=== PATIENT | female | born 2000 | race Caucasian/White ===

== ENCOUNTER 2024-04-05 12:22 | Inpatient (IN) ==
--- NOTE | 2024-04-05 12:52 | Emergency Department Note ---
Impression & Plan UTI (urinary tract infection) ADMIT ED Provider Note HPI: History obtained from patient. The patient is a 24-year-old female who presents the emergency department with a chief complaint of right flank pain and dysuria that has been ongoing for the past 4 to 5 days. Patient states at times the pain radiates down her right lower quadrant area. Patient states that she has had similar symptoms in the past that were attributed to kidney stones. On arrival here to the ED the patient is mildly tachycardic but otherwise hemodynamically stable. Patient is afebrile on arrival. ROS: - Per HPI Differential Diagnosis: Urinary tract infection, pyelonephritis, renal abscess, kidney stone, pyelitis, cystitis, ectopic , ovarian cyst, acute appendicitis, amongst other potential pathologies. *Outpatient medications and allergy history reviewed. 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 Lab work shows a leukocytosis of 14.08, hemoglobin is normal, platelet count is normal, CMP does not show any evidence of any critical findings, renal function appears normal. testing is negative, there is no transaminitis, bilirubin is normal. Urinalysis shows 1+ ketones, 2+ blood, 1+ leukocyte esterase with significant pyuria. Will send for culture, CT imaging of the abdomen pelvis was obtained that shows evidence of an obstructing kidney stone at the right UVJ measuring 4 mm in diameter. This does result in mild hydronephrosis. On my reassessment the patient stated that she was still having some discomfort therefore she was added a dose of IV Toradol. I discussed all the above findings with the on-call urology midlevel provider, Darlin Gee NP, and the patient was evaluated at the bedside. Following urology evaluation request was made for medical admission to the hospitalist service and urology will consult, they stated they did not have immediate plans for stent placement unless the patient's status decompensated. Case was then discussed with the on- call hospitalist, Dr. Knutson, and the patient was placed for admission in stable condition. Blood cultures were drawn and the patient was treated in the ER with IV ceftriaxone. Patient was in agreement to this plan and she was placed for admission in stable condition. Consultants/Discussions held with other healthcare providers: -Urology, Dr. Johnson -Hospitalist, Dr. Knutson Disposition discussion held by myself with: -Patient Diagnosis: 1. Infected kidney stone with ureteral obstruction, acute 2. Urinary tract infection, acute 3. Leukocytosis, acute 4. Right-sided abdominal pain/right flank pain, acute 5. Ketonuria, acute Disposition: Admission Haroldo Barboza DO Emergency Medicine Past Med/Surg History Problem List (Updated 04/05/24 @ 17:00 by Haroldo Barboza DO) UTI (urinary tract infection) (Acute) Right distal ureteral calculus Medical History Asthma Surgical History No pertinent past surgical history Social History Smoking Status: Never smoker Preferred Language: Serbian Feels Safe at Home: Yes Allergies Allergies Allergy/AdvReac Type Severity Reaction Status Date / Time No Known Allergies Allergy Verified 07/09/21 23:53 Home Meds Home Medications Medication Instructions Recorded Confirmed Lactobacillus acidophilus 10 10,000 mmu cells PO DAILY 08/24/20 07/09/21 billion cell capsule (Probiotic) fexofenadine 180 mg tablet 180 mg PO DAILY 08/24/20 07/09/21 fluticasone propionate 50 1 spray intranasal DAILY 08/24/20 07/09/21 mcg/actuation nasal spray,suspension lisdexamfetamine 50 mg capsule 50 mg PO QA 08/24/20 07/09/21 (Vyvanse) multivit-iron 18 mg-folic acid 400 1 tab PO QAM 08/24/20 07/09/21 mcg-calcium 500 mg-minerals tablet (Women's One Daily) bupropion HCl 150 mg 24 hr tablet, 150 mg PO DAILY 07/09/21 07/09/21 extended release norgestimate 0.25 mg-ethinyl 1 tab PO DAILY 07/09/21 07/09/21 estradiol 35 mcg tablet (Sylvia) Results & Data (ED) Vital Signs Vital Signs - 24 hr 04/05/24 12:30 04/05/24 14:23 04/05/24 14:34 Temperature 36.6 C Temperature Source Skin Pulse Rate 115 H 115 H Pulse Rate [Radial] 89 Pulse Rhythm Regular Pulse Rhythm [Radial] Regular Respiratory Rate 18 18 18 Respiratory Effort / Characteristics Non-Labored Respiratory Depth Normal Respiratory Pattern Regular Blood Pressure 116/82 Blood Pressure [Right Arm] 121/84 Blood Pressure Mean 93 Blood Pressure Mean [Right Arm] 96 Pulse Oximetry 99 100 100 Oxygen Delivery Method Room Air Room Air Room Air Sepsis Recent Fever Within 48 Hours No Sepsis New/Unexplained Change in Mental Status No Sepsis Action Taken by Nursing No Action Required 04/05/24 16:25 Temperature Temperature Source Pulse Rate Pulse Rate [Radial] 100 H Pulse Rhythm Pulse Rhythm [Radial] Regular Respiratory Rate 18 Respiratory Effort / Characteristics Non-Labored Respiratory Depth Normal Respiratory Pattern Regular Blood Pressure Blood Pressure [Right Arm] 120/86 Blood Pressure Mean Blood Pressure Mean [Right Arm] 97 Pulse Oximetry 99 Oxygen Delivery Method Room Air Sepsis Recent Fever Within 48 Hours Sepsis New/Unexplained Change in Mental Status Sepsis Action Taken by Nursing Laboratory Data 04/05/24 12:33 04/05/24 12:33 Lab Results 04/05/24 04/05/24 Range/Units 12:33 13:44 WBC 14.08 H (4.8-10.8) K/ul RBC 5.29 (4.20-5.40) M/uL Hgb 13.9 (12.0-16.0) g/dl Hct 43.2 (37.0-47.0) % MCV 81.7 (80.0-100.0) fL MCH 26.3 (25.0-34.0) pg MCHC 32.2 (32.0-36.0) g/dL RDW Std Deviation 40.0 (36.4-46.3) fL RDW Coeff of Vanna 13.7 (11.5-14.5) % Plt Count 325 (130-400) K/uL MPV 10.2 (9.4-12.4) fL Immature Gran % (Auto) 0.4 % Neut % (Auto) 67.1 % Lymph % (Auto) 22.2 % [place] % (Auto) 7.2 % Eos % (Auto) 2.7 % Baso % (Auto) 0.4 % Neut # (Auto) 9.44 H (1.40-6.50) K/uL Lymph # (Auto) 3.13 (1.20-3.40) K/uL Union # (Auto) 1.01 H (0.11-0.59) K/uL Eos # (Auto) 0.38 (0.00-0.50) K/uL Baso # (Auto) 0.06 (0.00-0.20) K/uL Immature Gran # (Auto) 0.06 (0.01-0.20) K/uL Sodium 136 (136-145) mmol/L Potassium 4.0 (3.5-5.1) mmol/L Chloride 104 (98-107) mmol/L Carbon Dioxide 23 (21-32) mmol/L Anion Gap 9 (3-11) BUN 13 (6-23) mg/dl Creatinine 1.20 (0.6-1.2) mg/dl Est Cr Clr Drug Dosing Not Reportable eGFR 64.83 BUN/Creatinine Ratio 10.8 (10-20) Glucose 88 (70-99(Fasting)) mg/dl Calcium 9.2 (8.6-10.3) mg/dl Total Bilirubin 0.4 (0.2-1.0) mg/dl AST 15 (13-39) U/L ALT 18 (7-52) U/L Alkaline Phosphatase 68 (34-104) U/L Total Protein 7.5 (6.0-8.3) gm/dl Albumin 4.2 (3.4-5.0) gm/dl Globulin 3.3 (2.5-4.0) gm/dl Albumin/Globulin Ratio 1.3 (0.9-2) Lipase 28 (11-82) U/L HCG, Qual Negative (Negative) Urine Color Yellow Urine Appearance Cloudy A (Clear) Urine pH 6.0 (4.5-7.5) Ur Specific [place] 1.023 (1.000-1.030) Urine Protein 2+ H (Negative) Urine Glucose (UA) Negative (Negative) Urine Ketones 1+ H (Negative) Urine Blood 2+ H (Negative) Urine Nitrite Negative (Negative) Urine Bilirubin Negative (Negative) Urine Urobilinogen Negative (Negative) Ur Leukocyte Esterase 1+ H (Negative) Urine WBC (Auto) 21-50 H (0-5) /hpf Urine RBC (Auto) >20 H (0-2) /hpf U Hyaline Cast (Auto) 3-5 H (0-2) /lpf U Epithel Cells (Auto) 6-10 H (0-2) /hpf Urine Bacteria (Auto) 3+ H (None Seen) Administered Medications Discontinued Medications Sodium Chloride (Nss) 1,000 mls @ 999 mls/hr IV .Q1H1M ONE Stop: 04/05/24 13:50 Last Infusion: 04/05/24 14:09 Dose: Infused Documented By: Admin: 04/05/24 13:08 Dose: 999 mls/hr Documented By: KERWIN Ceftriaxone Sodium (Rocephin) 2,000 mg in 50 mls @ 100 mls/hr IV NOW STA Stop: 04/05/24 14:58 Last Infusion: 04/05/24 16:25 Dose: Infused Documented By: Admin: 04/05/24 15:29 Dose: 100 mls/hr Documented By: KERWIN Ketorolac Tromethamine (Ketorolac Tromethamine 15 Mg/Ml Vial) 15 mg IV NOW ONE Stop: 04/05/24 15:12 Last Admin: 04/05/24 15:29 Dose: 15 mg Documented By: KERWIN Morphine Sulfate (Morphine Sulfate 4 Mg/Ml 1 Ml Carp\Vial) 4 mg IV NOW STA Stop: 04/05/24 12:51 Last Admin: 04/05/24 13:08 Dose: 4 mg Documented By: KERWIN Ondansetron HCl (Ondansetron Inj 2 Mg/Ml 2 Ml Vial) 4 mg IV NOW STA Stop: 04/05/24 12:51 Last Admin: 04/05/24 13:08 Dose: 4 mg Documented By: [facility] Imaging Data Radiologist's Impression: Abdomen/Pelvis CT 04/05/24 12:[address] WITHOUT CONTRAST CT DOSE: 1234.98 mGy.cm HISTORY: Acute right-sided flank pain with hematuria R flank pain TECHNIQUE: Multiaxial CT images of the abdomen and pelvis were performed without contrast. A dose lowering technique was utilized adhering to the principles of ALARA. COMPARISON STUDY: None. FINDINGS: Clear lung bases. No pneumatosis or pneumoperitoneum. The unenhanced spleen, pancreas, adrenal glands, liver and gallbladder are within normal limits. Nonobstructing bilateral renal calculi measuring up to 3 mm on the left and 4 mm on the right. There is mild right-sided hydroureteronephrosis secondary to an obstructing 4 mm calculus within the right ureterovesicular junction on image 322. No left-sided ureteral calculi identified. Decompressed urinary bladder with wall thickening. Unremarkable uterus, aorta and IVC. No lymphadenopathy. No bowel obstruction or bowel wall thickening. Noninflamed appendix. No acute fracture. IMPRESSION: 1. Mild right-sided hydroureteronephrosis secondary to an obstructing 4 mm calculus at the ureterovesicular junction. 2. Nonobstructing bilateral nephrolithiasis. 3. Normal appendix. ACT 112: Negative or not required by law. The above report was generated using voice recognition software. It may contain grammatical, syntax or spelling errors. Electronically signed by: Abiodun Kim M.D. 04/05/2024 2:07 PM Discharge Plan Visit Data Chief Complaint: Kidney Stone Stated Complaint: KIDNEY STONE, SCANS NEED DONE ED Provider: Haroldo Barboza Discharge Problem: UTI (urinary tract infection) Forms Stand Alone Forms: [facility] [place] [employer] Prescriptions Prescriptions: No Action norgestimate-ethinyl estradiol [Sylvia] 0.25-35 mg-mcg tablet 1 tab PO DAILY bupropion HCl 150 mg tablet extended release 24 hr 150 mg PO DAILY fexofenadine [Mavis] 180 mg Tablet 180 mg PO DAILY fluticasone propionate [Flonase] 50 mcg/actuation [place],Suspension 1 spray INTRANASAL DAILY Vyvanse 50 mg capsule 50 mg PO QAM Women's One Daily 18 mg iron-400 mcg-500 mg Ca Tablet 1 tab PO QAM Probiotic 10 billion cell Capsule 10,000 mmu cells PO DAILY Referrals Referrals: PCP,NO [Primary Care Provider] -
[2024-04-05] MEDS: SODIUM CHLORIDE 0.9% 1,000 ML IV ONE (13:08)
[2024-04-05] MEDS: ONDANSETRON INJ 2 MG/ML 2 ML VIAL IV STA (13:08)
[2024-04-05] MEDS: MoRPHine SULFATE 4 MG/ML 1 ML CARP\\VIAL IV STA (13:08)
[2024-04-05 13:23] LABS: Pregnancy Test, Serum Negative (Negative)
[2024-04-05 13:28] LABS: Alanine Aminotransferase 18 U/L (7-52); Albumin Globulin Ratio 1.3 (0.9-2); Albumin Level 4.2 gm/dl (3.4-5.0); Alkaline Phosphatase 68 U/L (34-104); Anion Gap 9 (3-11); Aspartate Aminotransferase 15 U/L (13-39); BUN Creatinine Ratio 10.8 (10-20); Bilirubin,Total 0.4 mg/dl (0.2-1.0); Blood Urea Nitrogen 13 mg/dl (6-23); Calcium 9.2 mg/dl (8.6-10.3); Carbon Dioxide 23 mmol/L (21-32); Chloride 104 mmol/L (98-107); Globulin 3.3 gm/dl (2.5-4.0); Glucose 88 mg/dl (70-99(Fasting)); Lipase 28 U/L (11-82); Sodium 136 mmol/L (136-145); Total Protein 7.5 gm/dl (6.0-8.3)
[2024-04-05 13:31] LABS: Basophils # (auto) 0.06 K/uL (0.00-0.20); Basophils % (auto) 0.4 %; Eosinophils # (auto) 0.38 K/uL (0.00-0.50); Eosinophils % (auto) 2.7 %; Hematocrit (blood only) 43.2 % (37.0-47.0); Hemoglobin 13.9 g/dl (12.0-16.0); Immature Granulocytes # (auto) 0.06 K/uL (0.01-0.20); Immature Granulocytes % (auto) 0.4 %; Lymphocytes # (auto) 3.13 K/uL (1.20-3.40); Lymphocytes % (auto) 22.2 %; Mean Corpuscular Hemoglobin 26.3 pg (25.0-34.0); Mean Corpuscular Hgb Conc 32.2 g/dL (32.0-36.0); Mean Corpuscular Volume 81.7 fL (80.0-100.0); Mean Platelet Volume 10.2 fL (9.4-12.4); Monocytes # (auto) 1.01 K/uL (0.11-0.59); Monocytes % (auto) 7.2 %; Neutrophils # (auto) 9.44 K/uL (1.40-6.50); Neutrophils % (auto) 67.1 %; Platelet Count 325 K/uL (130-400); RDW Coefficient of Variation 13.7 % (11.5-14.5); Red Blood Count 5.29 M/uL (4.20-5.40); White Blood Count 14.08 K/ul (4.8-10.8)
--- NOTE | 2024-04-05 14:08 | CT Scan Report ---
ABDOMEN AND PELVIS CT WITHOUT CONTRAST CT DOSE: 1234.98 mGy.cm HISTORY: Acute right-sided flank pain with hematuria R flank pain TECHNIQUE: Multiaxial CT images of the abdomen and pelvis were performed without contrast. A dose lo wering technique was utilized adhering to the principles of ALARA. COMPARISON STUDY: None. FINDINGS: Clear lung bases. No pneumatosis or pneumoperitoneum. The unenhanced spleen, pancreas, adre nal glands, liver and gallbladder are within normal limits. Nonobstructing bilateral renal calculi me asuring up to 3 mm on the left and 4 mm on the right. There is mild right-sided hydroureteronephrosis secondary to an obstructing 4 mm calculus within the right ureterovesicular junction on image 322. N o left-sided ureteral calculi identified. Decompressed urinary bladder with wall thickening. Unremark able uterus, aorta and IVC. No lymphadenopathy. No bowel obstruction or bowel wall thickening. Noninflamed appendix. No acute fracture. IMPRESSION: 1. Mild right-sided hydroureteronephrosis secondary to an obstructing 4 mm calculus at the ureteroves icular junction. 2. Nonobstructing bilateral nephrolithiasis. 3. Normal appendix. ACT 112: Negative or not required by law. The above report was generated using voice recognition software. It may contain grammatical, syntax o r spelling errors. Electronically signed by: Abiodun Kim M.D. 04/05/2024 2:07 PM
[2024-04-05 14:23] LABS: Appearance Urine Cloudy (Clear); Bacteria Urine Automated 3+ (None Seen); Bilirubin Urine Negative (Negative); Blood Urine 2+ (Negative); Color Urine Yellow; Glucose Urine UA Negative (Negative); Ketones Urine 1+ (Negative); Leukocyte Esterase Urine 1+ (Negative); Nitrite Urine Negative (Negative); Protein Urine 2+ (Negative); RBC Urine Automated >20 /hpf (0-2); Specific Gravity Urine 1.023 (1.000-1.030); Urobilinogen Urine Negative (Negative); WBC Urine Automated 21-50 /hpf (0-5)
[2024-04-05] MEDS: KETOROLAC TROMETHAMINE 15 MG/ML VIAL IV ONE (15:29)
[2024-04-05] MEDS: cefTRIAXone SODIUM 2,000 MG/50 ML BAG IV STA (15:29)
--- NOTE | 2024-04-05 15:34 | Urology Consultation ---
Date of Consultation April 05, 2024 Assessment & Plan (1) Right distal ureteral calculus: 24-year-old female presenting to the emergency department today for evaluation of right flank pain and dysuria. CT abdomen pelvis demonstrated mild hydronephrosis secondary to a 4 mm right UVJ stone. Urinalysis with concern for infection. Patient afebrile, tachycardic, but normotensive, nontoxic appearing Labs reviewedcreatinine 1.2, WBC 14.08, hemoglobin 13.9 Urinalysis showed 2+ blood, 1+ LE, 21-50 WBC, >20 RBC and 3+ bacteria Urine culture pending CT reviewed and discussed - 4 mm R UVJ stone with mild hydronephrosis, additional bilateral renal stones Discussed options for stone management including observation and trial of passage or surgical intervention with right ureteral stent Case reviewed and discussed with Dr. Johnson Recommend admission to hospital medicine for pain control and monitoring If she becomes febrile/septic, will require right ureteral stent placement Continue broad-spectrum antibiotics and narrow per sensitivity data when available Continue supportive care, pain control and medical management per hospital medicine service Make NPO at midnight to reassess for surgical intervention will follow, please contact our service if patient becomes febrile or changes in clinical status History of Present Illness History of Present Illness This is a 24-year-old female who presented to the emergency department today for evaluation of right flank pain and dysuria x 5 days. On arrival to ED, she was afebrile, tachycardic, normotensive. Lab work reviewed and showed a white count of 14.08, hemoglobin 13.9, creatinine 1.2. Urinalysis showed 2+ blood, 1+ LE, 21-50 WBC, >20 RBC, 6-10 epithelials and 3+ bacteria. Urine culture is pending. Workup included CT abdomen pelvis without contrast which showed mild right sided hydroureteronephrosis secondary to an obstructing 4 mm calculus at the UVJ. Additional nonobstructing bilateral nephrolithiasis. ED course: IV fluids, morphine, ketorolac, ondansetron and Rocephin. Patient seen and examined in the emergency department. She is awake and resting in litter. She reports flank pain began 5 days ago and became more persistent 3 days ago. She reports dysuria and discomfort voiding for the past several days. She believes she passed a stone yesterday evening and today because she saw a speck in the toilet. She reports nausea, no vomiting. She reports feeling hot, but her temperature has been normal when measured. No chills. She had a piece of toast around 10 AM. She reports history of sinus infection in January and then developed C. difficile. No prior stone history. She has family history of stones. Allergies Allergy/AdvReac Type Severity Reaction Status Date / Time No Known Allergies Allergy Verified 07/09/21 23:53 Home Medications Medication Instructions Recorded Confirmed Type Lactobacillus acidophilus 10 10,000 mmu cells PO DAILY 08/24/20 07/09/21 History billion cell capsule (Probiotic) fexofenadine 180 mg tablet 180 mg PO DAILY 08/24/20 07/09/21 History fluticasone propionate 50 1 spray intranasal DAILY 08/24/20 07/09/21 History mcg/actuation nasal spray,suspension lisdexamfetamine 50 mg capsule 50 mg PO QAM 08/24/20 07/09/21 History (Vyvanse) multivit-iron 18 mg-folic acid 400 1 tab PO QAM 08/24/20 07/09/21 History mcg-calcium 500 mg-minerals tablet (Women's One Daily) bupropion HCl 150 mg 24 hr tablet, 150 mg PO DAILY 07/09/21 07/09/21 History extended release norgestimate 0.25 mg-ethinyl 1 tab PO DAILY 07/09/21 07/09/21 History estradiol 35 mcg tablet (Sylvia) Patient History Medical History Asthma Surgical History No pertinent past surgical history Social History Smoking Status: Never smoker Preferred Language: Danish Feels Safe at Home: Yes Review of Systems Review of Systems: All systems reviewed & are unremarkable except as noted in HPI & below Physical Exam Constitutional: well developed and well nourished; no acute distress and not ill appearing Respiratory: normal respiratory effort; no respiratory distress and no labored breathing Cardiovascular: Rate/Rhythm: + tachycardic Gastrointestinal (Abdomen): Inspection/Auscultation: abdomen normal to inspection Musculoskeletal: Head/Neck/Chest: normocephalic Neurologic: moves all extremities and awake Psychiatric: Orientation: alert and oriented x 3 Results & Data Vital Signs (Past 12 Hours) Vital Signs Temp Pulse Pulse Resp BP BP Pulse Ox 04/05/24 14:34 115 H 18 100 04/05/24 14:23 89 18 121/84 100 04/05/24 12:30 36.6 C 115 H 18 116/82 99 O2 Del Method 04/05/24 14:34 Room Air 04/05/24 14:23 Room Air 04/05/24 12:30 Room Air PG Care Time/CCT Total # of Minutes Spent Total Time Spent with Patient: Total time spent is greater than 50% in coordination of care (as documented) at patient's floor/unit and/or counseling patient: Coding Level of Care Code 24847 IN/OBS CONSULT LVL 4,60M Diagnoses Right distal ureteral calculus N20.1
[2024-04-05] MEDS ORDERED: KETOROLAC TROMETHAMINE 15 MG/ML VIAL IV PRN (16:27)
--- NOTE | 2024-04-05 16:46 | History & Physical Report ---
Date of Service April 05, 2024 Assessment & Plan (1) Right distal ureteral calculus: Plan: Patient presents to the hospital complaints of right flank pain for [address] scan of the abdomen pelvis showed evidence of obstructing 4 mm ureteral stone urology has been consulted keep n.p.o. after midnight Continue IV normal saline 100 cc/h Pain control with Toradol morphine Empiric IV ceftriaxone Consult urology (2) UTI (urinary tract infection): Plan: Urinalysis showed evidence of UTI Urine cultures pending Continue empiric IV ceftriaxone Admission and Anticipated Discharge Date Admission Date: admit to med surg full code History of Present Illness Chief Complaint: flank pain Primary Care Provider: NO PCP 24-year-old female with no significant past medical history presents to the facility with the following right flank pain about 5 days duration. Emergency department vital signs within normal limits was 14,000 however urinalysis showed evidence of some blood in the urine with a WBC and RBCs and also 3+ bacteria. A CT scan of the abdomen pelvis was done which showed evidence of a right-sided hydro ureteral nephrosis with an obstructing 4 mm stone. Has been consulted and plan will be to admit to the hospital service for now, but there may be need to take her to the OR if things do not improve. Allergies Allergy/AdvReac Type Severity Reaction Status Date / Time No Known Allergies Allergy Verified 07/09/21 23:53 Home Medications Medication Instructions Recorded Confirmed Type Lactobacillus acidophilus 10 10,000 mmu cells PO DAILY 08/24/20 07/09/21 History billion cell capsule (Probiotic) fexofenadine 180 mg tablet 180 mg PO DAILY 08/24/20 07/09/21 History fluticasone propionate 50 1 spray intranasal DAILY 08/24/20 07/09/21 History mcg/actuation nasal spray,suspension lisdexamfetamine 50 mg capsule 50 mg PO QAM 08/24/20 07/09/21 History (Vyvanse) multivit-iron 18 mg-folic acid 400 1 tab PO QAM 08/24/20 07/09/21 History mcg-calcium 500 mg-minerals tablet (Women's One Daily) bupropion HCl 150 mg 24 hr tablet, 150 mg PO DAILY 07/09/21 07/09/21 History extended release norgestimate 0.25 mg-ethinyl 1 tab PO DAILY 07/09/21 07/09/21 History estradiol 35 mcg tablet (Sylvia) Past Med/Surg History Problem List (Updated 04/05/24 @ 16:45 by Mitch Palmer MD) UTI (urinary tract infection) Right distal ureteral calculus Medical History Asthma Surgical History No pertinent past surgical history Social History Smoking Status: Never smoker Preferred Language: Latvian Feels Safe at Home: Yes Review of Systems Review of Systems: All systems reviewed are negative, apart from the ones contained in the history. Physical Exam Physical Exam: The patient is awake, alert and oriented 3, well developed and well nourished, normocephalic and atraumatic, lying in bed and in no acute distress. HEENT--PERRL, EOMI, mucous membranes and oropharynx mildly dry Neck--supple. No JVD. No bruits. Thyroid normal, trachea midline, no adenopathy. Heart--normal S1 and S2. No murmurs, rubs or gallops. Lungs--clear bilaterally, no respiratory distress, no accessory muscle use. Abdomen--normal bowel sounds and soft. Extremities--no cyanosis or clubbing. No edema. Dermatologic--normal skin turgor, normal color, no abnormal lymph nodes, no rash. Neurologic--cranial nerves II through XII grossly intact. Rheumatologic--normal range of motion. Psychiatric--normal affect. Results & Data Results & Data Vital Signs (Past 12 Hours) Vital Signs Temp Pulse Pulse Resp BP BP Pulse Ox 04/05/24 16:25 100 H 18 120/86 99 04/05/24 14:34 115 H 18 100 04/05/24 14:23 89 18 121/84 100 04/05/24 12:30 97.9 F 115 H 18 116/82 99 O2 Del Method 04/05/24 16:25 Room Air 04/05/24 14:34 Room Air 04/05/24 14:23 Room Air 04/05/24 12:30 Room Air PG Care Time/CCT Total # of Minutes Spent Total Time Spent with Patient: Total time spent is greater than 50% in coordination of care (as documented) at patient's floor/unit and/or counseling patient: Coding Level of Care Code 57736 INT INP/OBS CARE MIN Diagnoses Right distal ureteral calculus N20.1 UTI (urinary tract infection) N39.0 Time Spent (min) 75
[2024-04-05] MEDS: Patient's HEIGHT &/or WEIGHT Needed STA (19:06)
[2024-04-05] MEDS: SODIUM CHLORIDE 0.9% 1,000 ML IV SCH (19:09)
[2024-04-05] MEDS ORDERED: MoRPHine SULFATE 2 MG/ML CARP IV PRN (21:03)
[2024-04-05] MEDS: MoRPHine SULFATE 4 MG/ML 1 ML CARP\\VIAL IV PRN (21:38)
[2024-04-05] MEDS: ONDANSETRON INJ 2 MG/ML 2 ML VIAL IV PRN (21:39)
--- OUTSIDE RECORDS SUMMARY | 2024-04-05 22:47 | External Medical Summary | Summary of Care ---
Author Name Unknown Organization [facility] Address [address] [facility] [place] [address] Phone [phone] Care Team Providers Care Weight Control Lecturer Name Role Phone Angelita Child MD Primary Care Provider [phone] Reason for Visit * Reason Comments Acute Upper abdominal pain , currently 6 out of 10. Nausea, extreme pain during BM, noticed blood when wiping after having BM today. Also sinus congestion. Encounter Details Date Type Department Care Team (Late st Contact Info) Description 02/19/2024 1:40 PM EDT Office Visit Family [facility] [address] [place] [address] Katarina Rodriges MD [address] [place] [id number] Acute gastritis without hemorrhage, unspecified gastritis type*; Vaginal yeast infection Allergies No known active allergiesdocumented as of this encounter (statuses as of 02/19/2024) Medications Medication Sig Dispensed Refills Start Date End Date Status fluticasone (FLONASE) 50 MCG/ACT nasal spray Administer 2 Sprays into each nostril daily. 1 Inhaler 5 11/10/2018 Active fexofenadine (SCAR) 180 MG Tablet Take 1 Tab by mouth daily as needed (worsening nasal allergy symptoms). 11/10/2018 Active Albuterol Sulfate HFA 108 (90 Base) MCG/ACT Inhalation Aerosol Solution Inhale 2 Puffs by mouth every 4 hours as needed for Cough, Shortness of Breath or Wheezing (and with respiratory infections). 1 Inhaler 2 11/10/2018 Active BD TB Syringe 27G X 1/2" 1 ML USE 2 PER WEEK FOR ALLERGY INJECTION 01/19/2023 Active Multivitamin Gummies Adult Oral Tablet Chewable Take 1 Tablet by mouth in the morning. Active Ferrous Sulfate 325 (65 Fe) MG Oral Tablet (Feosol) Take 1 Tablet by mouth in the morning and 1 Tablet before bedtime. 02/11/2023 Active Ketoconazole 2 % External Cream Apply to affected area twice daily. 30 g 1 12/28/2023 Active Norgestimate-Eth Estradiol 0.25-35 MG-MCG Oral Tablet (Sprintec 28)Indications:[facility] for control, oral contraceptives Take 1 Tablet by mouth daily. 84 Tablet 4 01/18/2024 Active buPROPion HCl ER (XL) 300 MG Oral Tablet Extended Release 24 Hour (Wellbutrin XL) TAKE 1 TABLET BY MOUTH EVERY DAY IN THE MORNING 12/30/2023 Active Lisdexamfetamine Dimesylate 70 MG Oral Capsule (Vyvanse) TAKE 1 CAPSULE BY MOUTH EVERY DAY IN THE MORNING 12/30/2023 Active EPINEPHrine 0.3 MG/0.3ML Injection Solution Auto-injector (Autoinjector) inject 1 pen intramuscularly as needed for anaphylaxis and if necessary call 911 01/11/2024 Active lamoTRIgine 25 MG Oral Tablet (LaMICtal) 11/22/2023 Active Qelbree 200 MG Oral Capsule Extended Release 24 Hour (Viloxazine HCl ER) Take by mouth. A ctive Amoxicillin-Pot Clavulanate 875-125 MG Oral Tablet (Augmentin)Indicati ons:Acute cough,Acute non-recurrent frontal sinusitis Take 1 Tablet by mouth in the morning and 1 Tablet before bedtime. Do all this for 10 days. 20 Tablet 02/10/2024 Active Promethazine-DM 6.25-15 MG/5ML Oral SyrupIndications:[place] cough,Acute non-recurrent frontal sinusitis Take 5 mL by mouth 4 times a day as needed for Cough. 120 mL 1 02/10/2024 Active Ondansetron HCl 4 MG Oral TabletIndications:N ausea without vomiting Take 1 Tablet by mouth every 6 hours as needed for Nausea. 12 Tablet 02/15/2024 Active Protonix 40 MG Oral Tablet Delayed Release 1 Tablet. 02/18/2024 Active documented as of this encounter (statuses as of 02/19/2024) Active Problems Problem Noted Date Diagnosed Date Intermittent asthma with reliever use up to twic e per week 02/04/2022 Atopic dermatitis 01/24/2020 Asperger's syndrome 12/09/2019 Attention deficit disorder (ADD) without hyperac tivity 05/03/2019 Moderate episode of recurrent major depressive d isorder 05/03/2019 GREG (generalized anxiety disorder) 05/03/2019 Extrinsic asthma without complication 11/10/2018 Allergic rhinitis documented as of this encounter (statuses as of 02/19/2024) Resolved Problems Problem Noted Date Diagnosed Date Resolved Date Anxiety and depression 05/03/201905/03 Allergic conjunctivitis, bilateral 11/10/2018 01/14/2022 documented as of this encounter (statuses as of 02/19/2024) Immunizations Name Administration Dates Next Due COVID-19 mRNA, LNP-s, No Pre serve, 2-Dose Series (Ask The Doctor) 07/28/2020,07/17/2020 Covid-19, Mrna, Lnp-s, Pf, B ivalent, 30 Mcg, IM, 12 yrs and above (Ask The Doctor) 02/10/2022 HPV Vaccine, 4-Valent 12/30/2012,08/28/2012,04/2012 Hepatitis A, Ped/Adol., 18 y ear and below, 2-Dose 03/04/2016,05/11/2008 Hepatitis B, 0-19 yrs 2000,2000,05/2000 Measles & Rubella Vaccine 01/04/2018,06/24/2001 Meningococcal B, OMV AJD, 2- Dose Series (BEXSERO) 01/04/2018,12/02/2017 Meningococcal MCV4P Conjugat e Vaccine (Menactra) 08/05/2016,06/04/2011 Pneumococcal Conjugate Vacci ne, 20-valent ([id number]) 01/28/2022 Pneumococcal Polysaccharide PPV23 (Pneumovax) 12/09/2019 Season Influenza, Quad, PF, Adjuvanted, 65+ Yrs, IM (FLUAD) 02/26/2021 Seasonal Influenza, PF, 6 M & above, IM , (FluLaval or Fluzone) 01/29/2023,01/14/2022,12/27/2019 Seasonal Influenza, Quad, Na june (Flumist) 01/18/2019 Seasonal Influenza, Trivalen t, (IIV3), PF, (Fluzone) 01/27/2024,05/23/2010,05/14/2009,03/15 TD - Tetanus/Diptheria (ADULT) 01/14/2022 TDAP, Age 7 and older, IM (Adacel) 06/04/2011 Varicella Vaccine (Chicken Pox) 03/15/2007,03/04 documented as of this encounter Social History Tobacco Use Types Packs/Day Years Used Date Smoking Tobacco: Never Smokeless Tobacco: Never Comments:no passive smoke ex posures Alcohol Use Standard Drinks/Week Comments Never 0 (1 standard drink = 0.6 oz pur e alcohol) AUDIT-C Answer Date Recorded Frequency of Alcohol Consumption Never 11/10/2018 Average Number of Drinks Not on file 019 Frequency of Binge Drinking Not on file 10/19 PHQ-2 Answer Date Recorded PHQ Adult Total Score 0 04/01/2022 Hunger Vital Sign Answer Date Recorded Within the past 12 months, y ou worried that your food would run out before you got the money to buy more. Never true 01/12/20 22 Within the past 12 months, t he food you bought just didn't last and you didn't have money to get more. Never true 01/11/2022 Utilities Answer Date Recorded Do you have trouble paying y our heating, water, or electric bill? (Adult - for ages 18 years and over) Not on file 10/06/2023 Is your family able to pay t he heat, water, or electric bill? (Household - for ages 0-17 years) Not on file 10/06/2023 Does your family have access to good internet? (Household - for ages 0-17 years) Not on file 10/06/2023 Social Connections Answer Date Recorded How often do you feel lonely or isolated from those around you? (Adult - for ages 18 years and over) Not on file 10/06/2023 Sex and Gender Information Value Date Recorded Sex Assigned at Female 05/03/2019 9:02 AM EST Gender Identity Female 05/03/2019 9:02 AM EST Sexual Orientation Bisexual 05/03/2019 9: 02 AM EST Job Start Date Occupation Industry Not on file Not on file Not on file documented as of this encounter Last Filed Vital Signs Vital Sign Reading Time Taken Comments Blood Pressure 96/72 02/19/2024 1:56 PM EDT Pulse 129 02/19/2024 1:56 PM EDT Temperature 37.5 C (99.5 F) 02/19/2024 1:56 PM ED T Respiratory Rate - - Oxygen Saturation 99% 02/19/2024 1:56 PM EDT Inhaled Oxygen Concentration - - Weight 81 kg (178 lb 9.6 oz) 02/19/2024 1:56 PM EDT Height - - Body Mass Index 31.64 02/10/2024 10:01 AM EDT documented in this encounter Patient Instructions * Patient Instructions* Katarina Rodriges MD - 02/19/2024 6:07 PM EDT Stomach pain likely from irritation by recent illness, amoxicillin and steroids. I think you have a yeast infection that is affecting vagina, perineum and anus. Recommend: -- stop amoxicillin -- continue pantoprazole from ED for 30 days -- get OTC monistat or gynelotrimin, 3-day or 7-day. Buy the one that has the external cream as well as the vaginal applicator. Apply the external cream to labia, perineum an anus 2x/day for 7-10 days. This should help burning, pain and blood on toilet paper. -- avoid things that irritate the stomach - ibuprofen, aspirin, naproxen, coffee, alcohol. documented in this encounter Progress Notes * Katarina Rodriges MD - 02/19/2024 1:58 PM EDT Images from the original note were not included. Subjective Lindsay Delgado is a 23 year old female that presents for Acute (Upper abdominal pain, currently 6 out of 10. Nausea, extreme pain during BM, noticed blood when wiping after having BM today. Also sinus congestion./) History of Present Illness The patient, with a history of sinus infection and nonobstructive kidney stones, presents with a stomach ache that has been ongoing for a few weeks. The pain is located in the upper abdomen, slightlyto the right, and is described as being all over or hard to pinpoint. The patient reports that the pain has been getting progressively worse. The patient was initially diagnosed with a sinus infection and was prescribed amoxicillin, prednisone, and promethazine. However, these medications seem to have exacerbated the patient's symptoms, leading to dizziness, confusion, agitation, and difficulty breathing. The patient has since stopped taking prednisone, promethazine as well as all vitamin supplements but has continue the pantoprazole. She went to the emergency department last night at [facility] and was given pantoprazole, and today is starting to feel better. CT scan showed small bilateral kidney stones but was otherwise unremarkable. Urinalysis was not clearly infected but was sent for urine culture. Labs were otherwise unremarkable. The patient has been experiencing pain during bowel movements and has noticed blood in the stool. Has had labial burning as well. [employer] student, studying [employer] Current medications and allergies reviewed. Past medical history and problem list reviewed. Objective Vitals: 02/19/24 1356 Temp: 37.5 C (99.5 F) Pulse: 129 SpO2: 99% BP: 96/72 Physical Exam HEENT: Oral cavity without specific findings. SKIN: Anal area with long fissure-like lesion at 12:00 position, tender upon palpation. Physical Exam Vitals and nursing note reviewed. Exam conducted with a logging assistant present. Constitutional: General: She is not in acute distress. Appearance: Normal appearance. She is not ill-appearing. HENT: Head: Normocephalic and atraumatic. Right Ear: Tympanic membrane, ear canal and external ear normal. There is no impacted cerumen. Left Ear: Tympanic membrane, ear canal and external ear normal. There is no impacted cerumen. Nose: Nose normal. Mouth/Throat: Mouth: Mucous membranes are moist. Pharynx: Oropharynx is clear. Eyes: General: No scleral icterus. Conjunctiva/sclera: Conjunctivae normal. Pupils: Pupils are equal, round, and reactive to light. Neck: Thyroid: No thyroid mass, thyromegaly or thyroid tenderness. Cardiovascular: Rate and Rhythm: Normal rate and regular rhythm. Heart sounds: No murmur heard. Pulmonary: Effort: Pulmonary effort is normal. Breath sounds: Normal breath sounds. Abdominal: General: Abdomen is flat. There is no distension. Palpations: Abdomen is soft. Tenderness: There is no abdominal tenderness. There is no guarding or rebound. Genitourinary: Comments: General erythema around the anus in the perineum Shallow thin line of cracking indicated by red line above No clearly obvious anal fissure that extends over the sphincter No hemorrhoids Musculoskeletal: Right lower leg: No edema. Left lower leg: No edema. Lymphadenopathy: Cervical: No cervical adenopathy. Skin: General: Skin is warm and dry. Neurological: Mental Status: She is alert. Psychiatric: Mood and Affect: Mood normal. Behavior: Behavior normal. I have reviewed the following results: CMP, Lipid Panel, Hemoglobin A1C, and CBC Assessment and Plan Assessment & Plan Epigastric Pain Ongoing for a few weeks, exacerbated by recent medications (Amoxicillin, Prednisone, Promethazine).CT scan showed non-obstructive kidney stones but no gallstones or abnormalities in pancreas or liver. Likely gastritis secondary to medication use and possible viral infection. -Discontinue Augmentin. -Continue Pantoprazole and consider adding Tums as needed. -Avoid stomach irritants (coffee, alcohol, ibuprofen, naproxen). -If symptoms worsen, contact triage nurse or on-call doctor. Anal Pain/Bleeding Favor yeast infection, causing pain during bowel movements and presence of blood. -Obtain [id number]-[id number] 3-day yeast treatment with suppository and external comfort cream. -Apply comfort cream to affected areas twice daily. -If symptoms do not improve in a week, seek further medical attention. Vaginal Discomfort Likely yeast infection, causing burning sensation at the top of the vagina. -Use the same [id number] 3-day yeast treatment and comfort cream as for anal symptoms. -Apply comfort cream to affected areas twice daily. -If symptoms do not improve in a week, seek further medical attention. Acute gastritis without hemorrhage, unspecified gastritis type (Primary) Vaginal yeast infection Wrap-Up Time: I spent a total of 30-39 minutes (exact time 30 mins) on the date of service in preparation, delivery, and documentation of the care provided to Lindsay Delgado excluding any time spent in the performance of separately billed services. Text in this note was generated using an [employer] documentation service. I discussed the use of a device to record and summarize our discussion today. All persons present during the encounter consented to its use. documented in this encounter Nursing Notes * Milagros Ortiz, Student - 02/19/2024 1:52 PM EDT The patient has been properly identified by confirmation of name and date of . Chief Complaint Patient presents with Acute Upper abdominal pain, currently 6 out of 10. Nausea, extreme pain during BM, noticed blood when wiping after having BM today. Also sinus congestion. One week ago went to urgent care for sinus infection and was prescribed antibiotics, had a bad reaction to something they gave her. [facility] to [facility] that night for med reaction and abd pain. Went to the [facility] ER yesterday for abd pain. Was diagnosed with kidney stones Thursday. documented in this encounter Plan of Treatment Upcoming Encounters Date Type Department Care Team (Late st Contact Info) Description 01/27/2025 8:20 AM EDT Office Visit General Internal Medicine [facility] [address] [place] [address] Angelita Child MD [address] [facility] [address] Health Maintenance Due Date Last Done Comments Depression Monitoring 04/01/2023 04/01/2022 COVID-19 Vaccine ( season) 2023 02/10/2022, 04/07/2021, 07/28/2020, Additional history exists Gonorrhea / Chlamydia Screen 04/15/2024 12/11/2022, 07/04/2021, 06/07/2020, Additional history exists Postponed from 12/12/2023 (Patient Declined After Education) Pap Smear 07/04/2024 07/04/2021 DTap/Tdap Vaccines (3 - Td or Tdap) 01/15/2032 01/14/2022, 06/04/2011 Hepatitis B Vaccine Completed 2000, 2000, 2000 HPV (Gardasil) Vaccine Completed 3, 08/28/2012, 06/18/2012 MENINGOCOCCAL (MENACTRA/MENVEO) Completed 08/05/2016, 06/04/2011 Pneumococcal Vaccine: Pediatrics (0 to 5 Years) and At-Risk Patients (6 to 64 Years) Completed 01/28/2022, 12/09/2019 Influenza Vaccine (FLU shot) Completed 01/27/2024, 01/29/2023, 01/14/2022, Additional history exists documented as of this encounter Medical Devices Not on filedocumented as of this encounter Visit Diagnoses Diagnosis Acute gastritis without hemorrhage, unspecified gastritis type- Primary Vaginal yeast infection Candidiasis of vulva and vagina documented in this encounter Care Teams Weight Control Lecturer Relationship Specialty Start Date End Date Angelita Child MD [address] [place] [address] PCP - General Internal Medicine 05/03/19 documented as of this encounter
--- OUTSIDE RECORDS SUMMARY | 2024-04-05 22:47 | External Medical Summary | Summary of Care ---
Author Name Unknown Organization [facility] Address [address] [place] [address] Phone [phone] Care Team Providers Care Ichthyology Teacher Name Role Phone Angelita Child MD Primary Care Provider [phone] Reason for Referral * Precert (Within 24 hrs (call dept; emergent)) - Authorized Specialty Diagnoses / Procedures Referred By Contac t Referred To Contact Radiology Diagnoses Leukocytosis, unspecified type Periumbilical abdominal pain Nausea without vomiting Procedures CT ABD/PELVIS WO IV/ORAL CONTRAST CT ABD/PELVIS WO IV CONTRAST - W ORAL CONTRAST Elaina Krueger MD [address] [place] [address] Phone: tel: fax: Referral ID Status Reason Start Date Expiration Date V isits Requested Visits Authorized [id number] Authorized Precert 02/15/2024 08/13/2024 [id number] Reason for Visit * Reason Comments Acute Encounter Details Date Type Department Care Team (Late st Contact Info) Description 02/15/2024 2:40 PM EDT Office Visit Family Practice State [facility] Dickson [address] [place] [address] Elaina Krueger MD [address] [place] [address] [address] Viral URI*; Leukocytosis, unspecified type; Periumbilical abdominal pain; Nausea without vomiting Allergies No known active allergiesdocumented as of this encounter (statuses as of 02/29/2024) Medications fluticasone (FLONASE) 50 MCG/ACT nasal spray Administer 2 Sprays into each nostril daily. 1 Inhaler 5 11/11/19 19 Active fexofenadine (SCAR) 180 MG Tablet Take 1 Tab by mouth daily as needed (worsening nasal allergy symptoms). 11/11/19 19 Active Albuterol Sulfate HFA 108 (90 Base) MCG/ACT Inhalation Aerosol Solution Inhale 2 Puffs by mouth every 4 hours as needed for Cough, Shortness of Breath or Wheezing (and with respiratory infections). 1 Inhaler 2 11/11/19 19 Active BD TB Syringe 27G X 1/2" 1 ML USE 2 PER WEEK FOR ALLERGY INJECTION 01/20/20 23 Active Multivitamin Gummies Adult Oral Tablet Chewable Take 1 Tablet by mouth in the morning. Active Ferrous Sulfate 325 (65 Fe) MG Oral Tablet (Feosol) Take 1 Tablet by mouth in the morning and 1 Tablet before bedtime. 02/12/20 23 Active Ketoconazole 2 % External Cream Apply to affected area twice daily. 30 g 1 12/28/19 24 Active Norgestimate-Eth Estradiol 0.25-35 MG-MCG Oral Tablet (Sprintec 28)Indications:Salgado rveillance for control, oral contraceptives Take 1 Tablet by mouth daily. 84 Tablet 4 01/18/20 24 Active buPROPion HCl ER (XL) 300 MG Oral Tablet Extended Release 24 Hour (Wellbutrin XL) TAKE 1 TABLET BY MOUTH EVERY DAY IN THE MORNING 12/30/19 24 Active Lisdexamfetamine Dimesylate 70 MG Oral Capsule (Vyvanse) TAKE 1 CAPSULE BY MOUTH EVERY DAY IN THE MORNING 12/30/19 24 Active EPINEPHrine 0.3 MG/0.3ML Injection Solution Auto-injector (Autoinjector) inject 1 pen intramuscularly as needed for anaphylaxis and if necessary call 911 01/11/20 24 Active lamoTRIgine 25 MG Oral Tablet (LaMICtal) 11/22/19 24 Active Qelbree 200 MG Oral Capsule Extended Release 24 Hour (Viloxazine HCl ER) Take by mouth. Activ e Promethazine-DM 6.25-15 MG/5ML Oral SyrupIndications: Acute cough,Acute non-recurrent frontal sinusitis Take 5 mL by mouth 4 times a day as needed for Cough. 120 mL 1 02/10/20 Active Ondansetron HCl 4 MG Oral TabletIndications :Nausea without vomiting Take 1 Tablet by mouth every 6 hours as needed for Nausea. 12 Tablet 02/15/20 Active Amoxicillin-Pot Clavulanate 875-125 MG Oral Tablet (Augmentin)Indica tions:Acute cough,Acute non-recurrent frontal sinusitis Take 1 Tablet by mouth in the morning and 1 Tablet before bedtime. Do all this for 10 days. 20 Tablet 02/10/20 24 2023 predniSONE 20 MG Oral Tablet (Deltasone)Indica tions:Acute cough,Acute non-recurrent frontal sinusitis Take 2 Tablets by mouth in the morning for 5 days. 10 Tablet 02/10/20 24 2023 documented as of this encounter (statuses as of 02/29/2024) Active Problems Problem Noted Date Diagnosed Date Intermittent asthma with reliever use up to twic e per week 02/04/2022 Atopic dermatitis 01/24/2020 Asperger's syndrome 12/09/2019 Attention deficit disorder (ADD) without hyperac tivity 05/03/2019 Moderate episode of recurrent major depressive d isorder 05/03/2019 GREG (generalized anxiety disorder) 05/03/2019 Extrinsic asthma without complication 11/10/2018 Allergic rhinitis documented as of this encounter (statuses as of 02/29/2024) Resolved Problems Problem Noted Date Diagnosed Date Resolved Date Anxiety and depression 05/03/201905/03 Allergic conjunctivitis, bilateral 11/10/2018 01/14/2022 documented as of this encounter (statuses as of 02/29/2024) Immunizations Name Administration Dates Next Due COVID-19 mRNA, LNP-s, No Pre serve, 2-Dose Series ([employer]) 07/28/2020,07/17/2020 Covid-19, Mrna, Lnp-s, Pf, B ivalent, 30 Mcg, IM, 12 yrs and above ([employer]) 02/10/2022 HPV Vaccine, 4-Valent 12/30/2012,08/28/2012,03/0 04/2012 Hepatitis A, Ped/Adol., 18 y ear and below, 2-Dose 03/04/2016,05/11/2008 Hepatitis B, 0-19 yrs 2000,2000,05/2000 Measles & Rubella Vaccine 01/04/2018,06/24/2001 Meningococcal B, OMV AJD, 2- Dose Series (BEXSERO) 01/04/2018,12/02/2017 Meningococcal MCV4P Conjugat e Vaccine (Menactra) 08/05/2016,06/04/2011 Pneumococcal Conjugate Vacci ne, 20-valent ([id number]) 01/28/2022 Pneumococcal Polysaccharide PPV23 (Pneumovax) 12/09/2019 Season [...] years and over) Not on file 10/06/2023 Comments No Sex and Gender Information Value Date Recorded Sex Assigned at Female 05/03/2019 9:02 AM EST Legal Sex Female 4:26 PM EDT Gender Identity Female 05/03/2019 9:02 AM EST Sexual Orientation Bisexual 05/03/2019 9: 02 AM EST Occupation Industry Job Start Date Job End Date student Not on file Not on file Not on file documented as of this encounter Last Filed Vital Signs Vital Sign Reading Time Taken Comments Blood Pressure 126/84 02/15/2024 2:37 PM EDT Pulse 130 02/15/2024 2:37 PM EDT Temperature 36.8 C (98.2 F) 02/15/2024 2:37 PM ED T Respiratory Rate 18 02/15/2024 2:37 PM EDT Oxygen Saturation 98% 02/15/2024 2:37 PM EDT Inhaled Oxygen Concentration - - Weight 81.2 kg (179 lb 1.9 oz) 02/15/2024 2:37 P M EDT Height - - Body Mass Index 31.73 02/10/2024 10:01 AM EDT documented in this encounter Progress Notes * Elaina Krueger MD - 02/15/2024 2:43 PM EDT Subjective Chief Complaint Patient presents with Acute Lindsay Delgado is a 23 year old female. Patient is unaccompanied. The following issues were addressed today: History of Present Illness The patient, with a history of sinus infections, presents with a prolonged illness that began in mid-January. She initially experienced severe nasal congestion, sneezing, and a runny nose, which she attempted to manage with Afrin. However, she discontinued Afrin after realizing its overuse could be harmful. Following this, she reported worsening symptoms, including facial pain, headaches, and stomach discomfort. She also noted a sensation of being in a "fog" and feeling dissociated from herself. The patient sought care at [facility] urgent care, where she was diagnosed with a sinus infection and prescribed amoxicillin, prednisone, and promethazine. Despite starting these medications, she continued to experience "brain fog," difficulty breathing, and stomach pain. Concerned about potential medication interactions, the patient visited the ER, where she underwent blood work, a urine test, and a chest x-ray. The ER staff instructed her to discontinue prednisone. Following this visit, the patient decided to stop all medications, including amoxicillin and promethazine, as well as her vitamin supplements. She is currently only taking Vyvanse and Wellbutrin. The patient reports persistent stomach pain, which she describes as being located towards the top of the abdomen. She also reports nausea and a recent episode of diarrhea. She has been experiencing postnasal drip and a stuffy nose, and she continues to have difficulty breathing. She also reports feeling unusually warm and has been wearing shorts and a tank top despite the cooler weather. The patient's symptoms have significantly impacted her daily life, including her ability to concentrate during an exam. She expresses frustration with her current state of health and a desire for relief from her symptoms. Review of Systems: See HPI Objective BP 126/84 | Pulse 130 | Temp 36.8 C (98.2 F) (Tympanic) | Resp 18 | Wt 81.2 kg (179 lb 1.9 oz) | LMP 01/19/2024 (Approximate) | SpO2 98% | BMI 31.73 kg/m | BSA 1.9 m Wt Readings from Last 3 Encounters: 02/19/24 81 kg (178 lb 9.6 oz) 02/15/24 81.2 kg (179 lb 1.9 oz) 02/10/24 81.6 kg (180 lb) BP Readings from Last 3 Encounters: 02/19/24 96/72 02/15/24 126/84 02/10/24 116/70 General: Well-appearing, no acute distress Head: Normocephalic and atraumatic Eyes: No conjunctival injection, no scleral icterus, extraocular movements are intact Ears: External ear unremarkable, canals normal and tympanic membranes clear bilaterally Nose: Nasal mucosa pink and moist, nares patent bilaterally Throat/Mouth: Oral mucosa pink and moist, tongue normal in appearance without lesions and with symmetrical movement, pharynx normal in appearance Cardiovascular: Regular rate and rhythm, no murmur Respiratory: Good respiratory effort, breath sounds equal and clear to auscultation bilaterally Abdomen: Soft, non-distended, normoactive bowel sounds, periumbilical tenderness to palpation with guarding, no rebound Psychiatric: Appropriate mood and affect Assessment and Plan 1. Viral URI Persistent symptoms of congestion, postnasal drip, and facial pain. Recommended she resume Augmentin as previously prescribed for sinus infection. 2. Leukocytosis, unspecified type - CT ABD/PELVIS WO IV/ORAL CONTRAST 3. Periumbilical abdominal pain - CT ABD/PELVIS WO IV/ORAL CONTRAST 4. Nausea without vomiting - CT ABD/PELVIS WO IV/ORAL CONTRAST - Ondansetron HCl 4 MG Oral Tablet; Take 1 Tablet by mouth every 6 hours as needed for Nausea. Dispense: 12 Tablet; Refill: 0 Significant pain on examination today. Patient reports abdominal pain and nausea since last . Recent labs reviewed and WBC elevated. Will order STAT CT abdomen/pelvis. Zofran Rx for nausea sent to pharmacy. Discussed may be symptom of viral illness but will rule out acute pathology given her findings here today. Return if symptoms worsen or fail to improve. This note was electronically signed by Elaina Krueger MD Text in this note was generated using an ambient documentation service. I discussed the use of a device to record and summarize our discussion today. All persons present during the encounter consented to its use. documented in this encounter Nursing Notes * Batool Zeng LPN - 02/15/2024 2:32 PM EDT Patient presents in office today with C/O not feeling well was seen in the ER and given Augmentin prednisone and promethazine. Is not any better. Is very sick to stomach headache, extreme fatigue, SOB brain very foggy having difficulty focusing and processing everything Covid, flu negative at hospital documented in this encounter Plan of Treatment Upcoming Encounters Date Type Department Care Team (Late st Contact Info) Description 03/08/2024 2:30 PM EST Office Visit Gastroenterology, [facility] [address] [place] [place] [address] Mary Kay Willams CRNP [address] [place] [id number] 01/27/2025 8:20 AM EDT Office Visit General Internal Medicine [facility] [address] [facility] [place] [address] Angelita Child MD [address] [facility] [place] [address] Health Maintenance Due Date Last Done Comments [...] Not on filedocumented as of this encounter Procedures Procedure Name Priority Date/Time Associated Diagnosis Comments CT ABD/PELVIS WO IV/ORAL CONTRAST STAT 02/15/2024 4:47 PM EDT Leukocytosis, unspecified type Periumbilical abdominal pain Nausea without vomiting documented in this encounter Results * CT ABD/PELVIS WO IV/ORAL CONTRAST (02/15/2024 4:47 PM EDT) Anatomical Region Laterality Modality Body, Abdomen, Pelvis Computed T omography 02/15/2024 5:43 PM EDT Impressions 02/15/2024 5:49 PM EDT IMPRESSION 1. No acute pathology in the abdomen or pelvis. 2. Bilateral nonobstructive nephrolithiasis without hydronephrosis. I have personally reviewed this examination and agree with the resident/fellow physician's interpretation. Narrative 02/15/2024 5:49 PM EDT EXAM EXAM: CT ABD/PELVIS WO IV/ORAL CONTRAST DATE and TIME: 02/15/2024 4:47 pm HISTORY CLINICAL INFORMATION: Periumbilical abd pain, nausea, leukocytosis TECHNIQUE Oral Contrast: Not administered. Axial CT images were acquired without intravenous contrast. Sagittal and coronal reformats were generated. COMPARISON None. FINDINGS LOWER CHEST: Within normal limits. ABDOMEN/PELVIS: Evaluation of the solid and hollow viscera is limited due to the lack of oral and IV contrast administration. LIVER: Within normal limits. BILE DUCTS: Nondilated. GALLBLADDER: No calcified stones. PANCREAS: Within normal limits. SPLEEN: Within normal limits. ADRENALS: Within normal limits. KIDNEYS/URETERS: Small bilateral nonobstructive calculi. No hydronephrosis. BLADDER: Collapsed. BOWEL: No bowel obstruction. Normal retrocecal appendix. LYMPH NODES: No pathologically enlarged lymph nodes. VESSELS: Within normal limits. REPRODUCTIVE ORGANS: Within normal limits. PERITONEUM/RETROPERITONEUM: No ascites, fluid collections, or free air. ABDOMINAL WALL/SOFT TISSUES: Within normal limits. BONES: Within normal limits. Procedure Note Arun Whittington MD - 02/15/2024 EXAM EXAM: CT ABD/PELVIS WO IV/ORAL CONTRAST DATE and TIME: 02/15/2024 4:47 pm HISTORY CLINICAL INFORMATION: Periumbilical abd pain, nausea, leukocytosis TECHNIQUE Oral Contrast: Not administered. Axial CT images were acquired without intravenous contrast. Sagittal andcoronal reformats were generated. COMPARISON None. FINDINGS LOWER CHEST: Within normal limits. ABDOMEN/PELVIS: Evaluation of the solid and hollow viscera is limited due to the lack oforal and IV contrast administration. LIVER: Within normal limits. BILE DUCTS: Nondilated. GALLBLADDER: No calcified stones. PANCREAS: Within normal limits. SPLEEN: Within normal limits. ADRENALS: Within normal limits. KIDNEYS/URETERS: Small bilateral nonobstructive calculi. Nohydronephrosis. BLADDER: Collapsed. BOWEL: No bowel obstruction. Normal retrocecal appendix. LYMPH NODES: No pathologically enlarged lymph nodes. VESSELS: Within normal limits. REPRODUCTIVE ORGANS: Within normal limits. PERITONEUM/RETROPERITONEUM: No ascites, fluid collections, or free air. ABDOMINAL WALL/SOFT TISSUES: Within normal limits. BONES: Within normal limits. IMPRESSION IMPRESSION 1. No acute pathology in the abdomen or pelvis. 2. Bilateral nonobstructive nephrolithiasis without hydronephrosis. I have personally reviewed this examination and agree with the resident/fellow physician's interpretation. us Elaina Krueger MD RAD CT Final Result documented in this encounter Visit Diagnoses Diagnosis Viral URI- Primary Acute upper respiratory infections of unspecified site Leukocytosis, unspecified type Periumbilical abdominal pain Abdominal pain, periumbilic Nausea without vomiting documented in this encounter Care Teams Ichthyology Teacher Relationship Specialty Start Date End Date Angelita Child MD [address] [place] [address] [place] [address] PCP - General Internal Medicine 05/03/19 documented as of this encounter
--- OUTSIDE RECORDS SUMMARY | 2024-04-05 22:47 | External Medical Summary | Summary of Care ---
Author Name Unknown Organization [facility] Address [address] [place] [address] Phone [phone] Care Team Providers Care Sander Machine Name Role Phone Angelita Child MD Primary Care Provider [phone] Encounter Details Date Type Department Care Team (Late st Contact Info) Description 04/04/2024 Orders Only Outcomes Research Department [address], [place] [id number] Macrina Hollis CHRA [employer] [facility] Other*[id number] Allergies No known active allergiesdocumented as of this encounter (statuses as of 04/04/2024) Medications fluticasone (FLONASE) 50 MCG/ACT nasal spray [...] needed for Cough. 120 mL 1 02/10/20 24 Active Ondansetron HCl 4 MG Oral TabletIndications :Nausea without vomiting Take 1 Tablet by mouth every 6 hours as needed for Nausea. 12 Tablet 02/15/20 24 Active Protonix 40 MG Oral Tablet Delayed Release 1 Tablet. 02/18/20 24 Active documented as of this encounter (statuses as of 04/04/2024) Active Problems Problem Noted Date Diagnosed Date Intermittent asthma with reliever use up to twic e per week 02/04/2022 Atopic dermatitis 01/24/2020 Asperger's syndrome 12/09/2019 Attention deficit disorder (ADD) without hyperac tivity 05/03/2019 Moderate episode of recurrent major depressive d isorder 05/03/2019 GREG (generalized anxiety disorder) 05/03/2019 Extrinsic asthma without complication 11/10/2018 Allergic rhinitis documented as of this encounter (statuses as of 04/04/2024) Resolved Problems Problem Noted Date Diagnosed Date Resolved Date Anxiety and depression 05/03/201905/03 Allergic conjunctivitis, bilateral 11/10/2018 01/14/2022 documented as of this encounter (statuses as of 04/04/2024) Immunizations Name Administration Dates Next Due COVID-19 mRNA, LNP-s, No Pre serve, 2-Dose Series ([employer]) 07/28/2020,07/17/2020 Covid-19, Mrna, Lnp-s, Pf, B ivalent, 30 Mcg, IM, 12 yrs and above ([employer]) 02/10/2022 HPV Vaccine, 4-Valent 12/30/2012,08/28/2012,04/2012 Hepatitis A, Ped/Adol., 18 y ear and below, 2-Dose 03/04/2016,05/11/2008 Hepatitis B, 0-19 yrs 2000,2000,05/2000 Measles & Rubella Vaccine 01/04/2018,06/24/2001 Meningococcal B, OMV AJD, 2- Dose Series (BEXSERO) 01/04/2018,12/02/2017 Meningococcal MCV4P Conjugat e Vaccine (Menactra) 08/05/2016,06/04/2011 Pneumococcal Conjugate Vacci ne, 20-valent ([id number]) 01/28/2022 Pneumococcal Polysaccharide PPV23 (Pneumovax) 12/09/2019 Season [...] on file documented as of this encounter Plan of Treatment Upcoming Encounters Date Type Department Care Team (Late st Contact Info) Description 01/27/2025 8:20 AM EDT Office Visit General Internal Medicine [facility] Dickson [address] [place] [address] Angelita Child MD [address] [place] [address] Scheduled Orders Name Type Priority Associated Diagnoses Orde r Schedule MYCODE SUBSEQUENT ADULT Lab Routine [employer] Other*[id number] Every 6 Months for 2 Occurrences starting 04/04/2024 until 04/24/2025 Health Maintenance Due Date Last Done Comments [...] as of this encounter Visit Diagnoses Diagnosis [facility] Other*[id number] documented in this encounter Care Teams Sander Machine Relationship Specialty Start Date End Date Angelita Child MD [address] [place] [address] PCP - General Internal Medicine 05/03/19 documented as of this encounter
--- OUTSIDE RECORDS SUMMARY | 2024-04-05 22:47 | External Medical Summary ---
Author Name Unknown Address Unknown Organization [facility] [address] [place] [address] Laboratory Report Ordering Provider Test Date Status NIKKO NINO 04/05/2024 11:31:00 Final Observation Date Value Abnormality Reference (Units ) Status Color of Urine by Auto 04/05/2024 11:31:00 Yellow Light Yellow, Yellow Final Clarity, Urine 04/05/2024 11:31:00 Cloudy Abnormal Clear Final Glucose [Mass/volume] in Urine by Automated test strip 04/05/2024 11:31:00 Negative Negative (mg/dL) Final Bilirubin.total [Presence] in Urine by Automated test strip 04/05/2024 11:31:00 Negative Negative Final Ketones [Mass/volume] in Urine by Automated test strip 04/05/2024 11:31:00 15 Abnormal Negative (mg/dL) Final Specific gravity, Urine 04/05/2024 11:31:00 1.020 1.003-1.030 Final Hemoglobin [Presence] in Urine by Automated test strip 04/05/2024 11:31:00 Moderate Abnormal Negative Final pH, Urine 04/05/2024 11:31:00 6.0 5.0, 5.5, 6.0, 6.5, 7.0, 7.5 (units) Final Protein [Mass/volume] in Urine by Automated test strip 04/05/2024 11:31:00 100 Abnormal Negative (mg/dL) Final Urobilinogen, Urine 04/05/2024 11:31:00 0.2 0.2, 1.0 (mg/dL) Final Nitrite [Presence] in Urine by Automated test strip 04/05/2024 11:31:00 Negative Negative Final Leukocyte esterase [Presence] in Urine by Automated test strip 04/05/2024 11:31:00 Trace Abnormal Negative Final Performing Location [facility] [address] [place] [address]
[2024-04-06 04:29] LABS: Hematocrit (blood only) 39.1 % (37.0-47.0); Hemoglobin 12.3 g/dl (12.0-16.0); Mean Corpuscular Hemoglobin 26.5 pg (25.0-34.0); Mean Corpuscular Hgb Conc 31.5 g/dL (32.0-36.0); Mean Corpuscular Volume 84.1 fL (80.0-100.0); Mean Platelet Volume 9.8 fL (9.4-12.4); Platelet Count 298 K/uL (130-400); RDW Coefficient of Variation 13.7 % (11.5-14.5); RDW Standard Deviation 42.2 fL (36.4-46.3); Red Blood Count 4.65 M/uL (4.20-5.40); White Blood Count 10.11 K/ul (4.8-10.8)
[2024-04-06 04:47] LABS: Calcium 8.2 mg/dl (8.6-10.3); Creatinine Clr Calc Pharmacy 81.6 ml/min; Potassium 4.3 mmol/L (3.5-5.1)
--- NOTE | 2024-04-06 08:31 | Urology Progress Note ---
Date of Service April 06, 2024 Assessment & Plan (1) Right distal ureteral calculus: (2) UTI (urinary tract infection): Plan: Follow-up of the right UVJ stone Patient afebrile overnight, intermittent tachycardia Labs today reviewedcreatinine 1.08, WBC 10.11, hemoglobin 12.3 Urine and blood cultures are pending Continue with broad-spectrum antibiotics and narrow per sensitivity data when available She continues to have right flank discomfort and nausea Reviewed options for management including trial of passage versus surgical intervention today or outpatient if her pain is controlled After reassessment, she would like to proceed with intervention today Proceed to OR for cystoscopy, right ureteral stent placement and possible stone extraction depending on findings Risks and benefits of procedure to be reviewed with patient by Dr. Cm Keep n.p.o. for procedure Continue to strain all urine Notify urology if patient passes her stone, send for stone analysis Continue supportive care, pain management and antibiotics per hospital medicine service Attending note: Patient independently assessed, examined, interviewed, and evaluated. Agree with note as above. Patient's vitals and labs were all reviewed. Pertinent values in the HPI and plan section. Imaging was reviewed interpreted by myself. Agree with read. Vitals were reviewed. Discussed findings extensively with patient and family. Reviewed with nurse practitioner as well as consulting physicians/team. Patient's complicated medical and surgical history was reviewed and summarized above. Patient's surgical, medical, social, and family history were all reviewed with pertinent values as above. Discussed patient's current diagnosis as well as concerns and issues. Reviewed different options moving forward. Discussed potential risks and benefits as well as possible options and concerns. Reviewed potential surgical options and interventions. Discussed potential issues and concerns related to intervention. Risk and benefits were discussed extensively with patient and any available family. Discussed potential risks related to anesthesia. Discussed risks of bleeding infection and injury. Risks and benefits discussed at length for procedure. These include bleeding, infection, injury to surrounding tissues or organs, and risks associated with anesthesia. Patient states understanding and agrees to proceed. Will sign consent and schedu le. Plan for cystoscopy with right ureteroscopy and possible stone treatment. Admission and Anticipated Discharge Date Admission Date: April 05, 2024 Subjective Patient seen and examined at bedside this morning. She continues to have right flank discomfort and intermittent nausea. She is voiding spontaneously. Denies known stone passage. Continues to have dysuria. No fever or chills overnight. Review of Systems Constitutional: as per Subjective / HPI Genitourinary: as per Subjective / HPI Physical Exam Constitutional: well developed and well nourished; no acute distress Respiratory: normal respiratory effort; no respiratory distress and no labored breathing Gastrointestinal (Abdomen): Inspection/Auscultation: abdomen normal to inspection Musculoskeletal: Head/Neck/Chest: normocephalic Neurologic: moves all extremities and awake Psychiatric: Orientation: alert and oriented x 3 Results & Data Vital Signs (Past 12 Hours) Vital Signs Temp Pulse Pulse Resp BP Pulse Ox O2 Del Method 04/06/24 07:55 36.7 C 91 H 18 150/78 H 95 Room Air 04/05/24 21:15 36.5 C 117 H 16 137/93 98 Room Air PG Care Time/CCT Total # of Minutes Spent Total Time Spent with Patient: Total time spent is greater than 50% in coordination of care (as documented) at patient's floor/unit and/or counseling patient: Coding Level of Care Code 59113 SUB INP/OBS CARE 25MIN Diagnoses Right distal ureteral calculus N20.1 UTI (urinary tract infection) N39.0
--- OUTSIDE RECORDS SUMMARY | 2024-04-06 09:35 | External Medical Summary | Summary of Care ---
Author Name Unknown Organization [facility] Address [address] [facility] [place] [address] Phone [phone] Care Team Providers Care Wad Impregnator Name Role Phone Angelita Child MD Primary Care Provider [phone] Reason for Visit * Reason Comments Acute RLQ pain, painful ur ination, urinary frequency started . Reports Kidney stones were found on imaging in January. Encounter Details Date Type Department Care Team (Late st Contact Info) Description 04/05/2024 11:20 AM EST Office Visit Family Practice [facility] [address] [place] [address] Nguyễn Murry MD [address] [place] [address] RLQ abdominal pain*; Dysuria; Nausea Allergies No known active allergiesdocumented as of this encounter (statuses as of 04/05/2024) Medications fluticasone (FLONASE) 50 MCG/ACT nasal spray Administer 2 Sprays into each nostril daily. 1 Inhaler 5 019 Active fexofenadine (SCAR) 180 MG Tablet Take 1 Tab by mouth daily as needed (worsening nasal allergy symptoms). Active Albuterol Sulfate HFA 108 (90 Base) MCG/ACT Inhalation Aerosol Solution Inhale 2 Puffs by mouth every 4 hours as needed for Cough, Shortness of Breath or Wheezing (and with respiratory infections). 1 Inhaler 2 019 Active BD TB Syringe 27G X 1/2" 1 ML USE 2 PER WEEK FOR ALLERGY INJECTION Active Multivitamin Gummies Adult Oral Tablet Chewable Take 1 Tablet by mouth in the morning. Active Ferrous Sulfate 325 (65 Fe) MG Oral Tablet (Feosol) Take 1 Tablet by mouth in the morning and 1 Tablet before bedtime. Active Norgestimate-Eth Estradiol 0.25-35 MG-MCG Oral Tablet (Sprintec 28)Indications:S urveillance for control, oral contraceptives Take 1 Tablet by mouth daily. 84 Tablet 4 Active buPROPion HCl ER (XL) 300 MG Oral Tablet Extended Release 24 Hour (Wellbutrin XL) TAKE 1 TABLET BY MOUTH EVERY DAY IN THE MORNING Active EPINEPHrine 0.3 MG/0.3ML Injection Solution Auto-injector (Autoinjector) inject 1 pen intramuscularly as needed for anaphylaxis and if necessary call 911 Active Qelbree 200 MG Oral Capsule Extended Release 24 Hour (Viloxazine HCl ER) Take by mouth. Activ e Ketoconazole 2 % External Cream Apply to affected area twice daily. 30 g 1 024 2023 Discontinued Lisdexamfetamine Dimesylate 70 MG Oral Capsule (Vyvanse) TAKE 1 CAPSULE BY MOUTH EVERY DAY IN THE MORNING 024 2023 Discontinued lamoTRIgine 25 MG Oral Tablet (LaMICtal) 024 2023 Discontinued Promethazine-DM 6.25-15 MG/5ML Oral SyrupIndications :Acute cough,Acute non-recurrent frontal sinusitis Take 5 mL by mouth 4 times a day as needed for Cough. 120 mL 1 024 2023 Discontinued Ondansetron HCl 4 MG Oral TabletIndication s:Nausea without vomiting Take 1 Tablet by mouth every 6 hours as needed for Nausea. 12 Tablet 024 2023 Discontinued Protonix 40 MG Oral Tablet Delayed Release 1 Tablet. 024 2023 Discontinued documented as of this encounter (statuses as of 04/05/2024) Active Problems Problem Noted Date Diagnosed Date Intermittent asthma with reliever use up to twic e per week 02/04/2022 Atopic dermatitis 01/24/2020 Asperger's syndrome 12/09/2019 Attention deficit disorder (ADD) without hyperac tivity 05/03/2019 Moderate episode of recurrent major depressive d isorder 05/03/2019 GREG (generalized anxiety disorder) 05/03/2019 Extrinsic asthma without complication 11/10/2018 Allergic rhinitis documented as of this encounter (statuses as of 04/05/2024) Resolved Problems Problem Noted Date Diagnosed Date Resolved Date Anxiety and depression 05/03/201905/03 Allergic conjunctivitis, bilateral 11/10/2018 01/14/2022 documented as of this encounter (statuses as of 04/05/2024) Immunizations Name Administration Dates Next Due COVID-19 mRNA, LNP-s, No Pre serve, 2-Dose Series ([employer]) 07/28/2020,07/17/2020 Covid-19, Mrna, Lnp-s, Pf, B ivalent, 30 Mcg, IM, 12 yrs and above ([employer]) 02/10/2022 HPV Vaccine, 4-Valent 12/30/2012,08/28/2012,04/2012 Hepatitis A, Ped/Adol., 18 y ear and below, 2-Dose 03/04/2016,05/11/2008 Hepatitis B, 0-19 yrs 2000,2000,05/2000 Measles & Rubella Vaccine 01/04/2018,06/24/2001 Meningococcal B, OMV AJD, 2- Dose Series (BEXSERO) 01/04/2018,12/02/2017 Meningococcal MCV4P Conjugat e Vaccine (Menactra) 08/05/2016,06/04/2011 Pneumococcal Conjugate Vacci ne, 20-valent ([id number]) 01/28/2022 Pneumococcal Polysaccharide PPV23 (Pneumovax) 12/09/2019 Season [...] Date Smoking Tobacco: Never Smokeless Tobacco: Never Tobacco Cessation:Counseling Given: Not Answered Comments:no passive smoke exposures Alcohol Use Standard Drinks/Week Comments Never 0 [...] money to get more. Never true 01/11/2022 Comments No Sex and Gender Information Value [...] Sign Reading Time Taken Comments Blood Pressure 104/62 04/05/2024 11:18 AM EST Pulse 118 04/05/2024 11:18 AM EST Temperature 36.6 C (97.9 F) 04/05/2024 11:[address] Respiratory Rate 16 04/05/2024 11:18 AM EST Oxygen Saturation 97% 04/05/2024 11:18 AM EST Inhaled Oxygen Concentration - - Weight - - Height - - Body Mass Index - - documented in this encounter Progress Notes * Elina Bloom LPN - 04/05/2024 12:14 PM EST Called [facility]. Verbal report given to Yue. * Nguyễn Murry MD - 04/05/2024 11:55 AM EST Images from the original note were not included. SUBJECTIVE: Lindsay Delgado is a 24 year old female here for Acute (RLQ pain, painful urination, urinary frequency started . Reports Kidney stones were found on imaging in January. ) . Right-sided mid abdominal pain started about 5 days ago. Has progressed to right lower abdominal pain and right groin pain. Became severe burning over the last 3 days. Also new nausea severe of the last 3 days no vomiting. She complains of dysuria and urinary frequency in the last 3 days. She thinks she may have passed a stone but without any relief. No gross hematuria. She she states she has had subjective fever but temperature normal at home. No chills. No chest pain. Sometimes painful take a deep breath in. Stools have been soft. She is known to have multiple renal stones on CT abdomen pelvis from this fall. Of note she was treated with oral vancomycin for significant C diff infection. She was hospitalizedfrom February 28 to March [facility] at [facility]. Since then her stools have slowly improved and she does not have any diarrhea currently. Hospital records were reviewed on [employer] anywhere. She had a negative test for stool culture, fecal calprotectin was normal. Tested negative for Giardia and Cryptosporidium. ROS: Negative except above. Past Medical History: Diagnosis Date Allergic conjunctivitis Allergic rhinitis Anxiety and depression Attention deficit disorder (ADD) without hyperactivity 05/03/2019 Autism spectrum Intermittent asthma with reliever use up to twice per week 02/04/2022 Past Surgical History: Procedure Laterality Date DENTAL SURGERY PROCEDURE NEC REMOVE TONSILS & ADENOIDS, UNDER 12 Social History Socioeconomic History Marital status: Single Spouse name: Not on file Number of children: Not on file Years of education: Not on file Highest education level: Not on file Occupational History Occupation: student Tobacco Use Smoking status: Never Smokeless tobacco: Never Tobacco comments: no passive smoke exposures Vaping Use Vaping status: Never Used Substance and Sexual Activity Alcohol use: Never Drug use: Never Sexual activity: Yes Partners: Male control/protection: Condom, Pill Other Topics Concern Not on file Social History Narrative Not on file Social Needs Financial Resource Strain: Not on file Food Insecurity: No Food Insecurity (01/11/2022) Hunger Vital Sign Worried About Running Out of Food in the Last Year: Never true Ran Out of Food in the Last Year: Never true Transportation Needs: Not on file Social Connections: Unknown (10/06/2023) Social Connections How often do you feel lonely or isolated from those around you? (Adult - for ages 18 years and over): Not on file Housing Stability: Not on file Family History Problem Relation Name Age of Onset No Known Problems Mother Eczema Father Current Outpatient Medications Medication Sig Dispense Refill fluticasone (FLONASE) 50 MCG/ACT nasal spray Administer 2 Sprays into each nostril daily. 1 Inhaler5 fexofenadine (SCAR) 180 MG Tablet Take 1 Tab by mouth daily as needed (worsening nasal allergy symptoms). Albuterol Sulfate HFA 108 (90 Base) MCG/ACT Inhalation Aerosol Solution Inhale 2 Puffs by mouth every 4 hours as needed for Cough, Shortness of Breath or Wheezing (and with respiratory infections). 1Inhaler 2 Multivitamin Gummies Adult Oral Tablet Chewable Take 1 Tablet by mouth in the morning. Ferrous Sulfate 325 (65 Fe) MG Oral Tablet (Feosol) Take 1 Tablet by mouth in the morning and 1 Tablet before bedtime. Norgestimate-Eth Estradiol 0.25-35 MG-MCG Oral Tablet (Sprintec 28) Take 1 Tablet by mouth daily. 84 Tablet 4 buPROPion HCl ER (XL) 300 MG Oral Tablet Extended Release 24 Hour (Wellbutrin XL) TAKE 1 TABLET BY MOUTH EVERY DAY IN THE MORNING EPINEPHrine 0.3 MG/0.3ML Injection Solution Auto-injector (Autoinjector) inject 1 pen intramuscularly as needed for anaphylaxis and if necessary call 911 Qelbree 200 MG Oral Capsule Extended Release 24 Hour (Viloxazine HCl ER) Take by mouth. BD TB Syringe 27G X 1/2" 1 ML USE 2 PER WEEK FOR ALLERGY INJECTION No current facility-administered medications for this visit. Reading Physician Reading Date Result Priority Arun Whittington MD [phone] 02/15/2024 Venus Salazar MD [phone] 02/15/2024 Narrative & Impression EXAM EXAM: CT ABD/PELVIS WO IV/ORAL CONTRAST [...] pelvis. 2. Bilateral nonobstructive nephrolithiasis without hydronephrosis. Physical: BP 104/62 | Pulse 118 | Temp 97.9 F (36.6 C) (Tympanic) | Resp 16 | SpO2 97% General-in distress, uncomfortable, unable to walk upright due to abd pain. Head, Eyes, Ears, Nose, Throat--Normocephalic, atraumatic Neck-Supple Lymph-no lymphadenopathy Lungs-Clear to Auscultation bilaterally Cardiovascular--tachycardic rate & regular Rhythm, +s1, s2, no murmur Abdomen-soft, +RLQ and suprapubic tender, + right CVA tenderness., nondistended + bowel sounds Extremities--no edema Neuro-alert & oriented x3 UA dip + ketone, moderate blood + trace LE, neg Nit. Urine preg = negative. (R10.31) RLQ abdominal pain (primary encounter diagnosis) Plan: suspect passing kidney stone vs cystitis vs pyelonephritis. Discussed outpt vs ER eval--discussed with patient and mom via phone, Ms. Palmer. Due to severity of symptoms, tachy, rec ER eval. Her BF Wade will drive her directly to [facility] ER. Report called to ER --With recent hopsitalization for CDiff last month, mom requests discuss antibiotic options/Cdiff prevention , once diagnosis made, with patient's GI doc--Dr Elvis Burris, [facility], [place] (R30.0) Dysuria Plan: URINALYSIS, POINT OF CARE, CULTURE, URINE, QUANTITATIVE, URINE SCREEN, POINT OF CARE (ENTER/EDIT) (R11.0) Nausea Plan: as above. I spent a total of 40-54 minutes (exact time 42 mins) on the date of service in preparation, delivery, and documentation of the care provided to Lindsay Delgado excluding any time spent in the performance of separately billed services or time spent by another provider/QHP. Cc: [facility] (This note was completed using the dictation program Fluency Direct. As such, there may be misspellings, word substitutions, or other variations that should not change the essence of the clinical content of this encounter note.If there is need for further clarification, please direct questions to the provider listed above.) Nguyễn Murry MD documented in this encounter Nursing Notes * Elina Bloom LPN - 04/05/2024 11:18 AM EST The patient has been properly identified by confirmation of name and date of . Chief Complaint Patient presents with Acute RLQ pain, painful urination, urinary frequency started . Reports Kidney stones were found on imaging in January. documented in this encounter Plan of Treatment Upcoming Encounters Date Type Department Care Team (Late st Contact Info) Description 01/27/2025 8:20 AM EDT Office Visit General Internal Medicine [facility] [place] [address] [place] [address] Angelita Child MD [address] [facility] [place] [address] Pending Results Name Type Priority Associated Diagnoses Date /Time CULTURE, URINE, QUANTITATIVE Lab Routine Dysuria 04/05/2024 11:39 AM EST Health Maintenance Due Date Last Done Comments [...] Procedure Name Priority Date/Time Associated Diagnosis Comments URINALYSIS, POINT OF CARE Routine 04/05/2024 11:31 AM EST Dysuria URINE SCREEN, POINT OF CARE (ENTER/EDIT) Routine 04/05/2024 Dysuria documented in this encounter Results * (ABNORMAL) URINALYSIS, POINT OF CARE (04/05/2024 11:31 AM EST) Color, Urine Yellow Light Yellow, Yellow 04/05/2024 11:37 AM EST [facility] [place] [facility] Clarity, Urine Cloudy(A) Clear 04/05/2024 11:37 AM EST [facility] [place] [facility] Glucose, Urine Negative Negative mg/dL 04/05/2024 11:37 AM EST [facility] [place] [facility] Bilirubin, Urine Negative Negative 04/05/2024 11:37 AM EST [facility] [place] [facility] Ketone, Urine 15(A) Negative mg/dL 04/05/2024 11:37 AM EST [facility] [place] [facility] [employer], Urine 1.020 1.003 - 1.030 04/05/2024 11:37 AM EST [facility] [place] [facility] Blood, Urine Moderate(A) Negative 04/05/2024 11:37 AM EST [facility] [place] [facility] pH, Urine 6.0 5.0, 5.5, 6.0, 6.5, 7.0, 7.5 units 04/05/2024 11:37 AM EST [facility] [place] [facility] Protein, Urine 100(A) Negative mg/dL 04/05/2024 11:37 AM EST [facility] [place] [facility] Urobilinogen, Urine 0.2 0.2, 1.0 mg/dL 04/05/2024 11:37 AM EST [facility] [place] [facility] Nitrite, Urine Negative Negative 04/05/2024 11:37 AM EST [facility] [place] [facility] Esterase, Urine Trace(A) Negative 04/05/2024 11:37 AM EST [facility] [place] [facility] Urine 04/05/2024 11:3 1 AM EST 04/05/2024 11:37 AM EST us Nguyễn Murry MD LAB POINT OF CAR E TEST DOCKED DEVICE UNSOLICITED RESULTS Final Result [facility] [place] [address] * URINE SCREEN, POINT OF CARE (ENTER/EDIT) (04/05/2024) hCG Beta, Urine Negative Negative Procedural Control Valid? Yes Lot Number [id number] Expiration Date 02/16/25 Urine 04/05/2024 Nguyễn Murry MD LAB POINT OF CARE TEST E NTER/EDIT ORDERABLES Final Result documented in this encounter Visit Diagnoses Diagnosis RLQ abdominal pain- Primary Abdominal pain, right lower quadrant Dysuria Nausea Nausea alone documented in this encounter Care Teams Wad Impregnator Relationship Specialty Start Date End Date Angelita Child MD [address] [place] [id number] PCP - General Internal Medicine 05/03/19 documented as of this encounter
--- OUTSIDE RECORDS SUMMARY | 2024-04-06 09:35 | External Medical Summary | Summary of Care ---
Author Name Unknown Organization [facility] Address [address] [facility] [place] [address] Phone [phone] Care Team Providers Care Director Sales And Marketing Name Role Phone Angelita Child MD Primary Care Provider [phone] Reason for Visit * Reason Comments Acute RLQ pain, painful ur ination, urinary frequency started . Reports Kidney stones were found on imaging in January. Encounter Details Date Type Department Care Team (Late st Contact Info) Description 04/05/2024 11:20 AM EST Office Visit Family Practice [facility] [address] [place] [address] Nguyễn Murry MD [address] [place] [address] RLQ abdominal pain*; Dysuria; Nausea Allergies No [...] mRNA, LNP-s, No Pre serve, 2-Dose Series ([employer]) 07/28/2020,07/17/2020 Covid-19, Mrna, Lnp-s, Pf, B ivalent, 30 Mcg, IM, 12 yrs and above ([employer]) 02/10/2022 HPV Vaccine, 4-Valent 12/30/2012,08/28/2012,04/2012 Hepatitis A, Ped/Adol., 18 y ear and below, 2-Dose 03/04/2016,05/11/2008 Hepatitis B, 0-19 yrs 2000,2000,05/2000 Measles & Rubella Vaccine 01/04/2018,06/24/2001 Meningococcal B, OMV AJD, 2- Dose Series (BEXSERO) 01/04/2018,12/02/2017 Meningococcal MCV4P Conjugat e Vaccine (Menactra) 08/05/2016,06/04/2011 Pneumococcal Conjugate Vacci ne, 20-valent ([id number]) 01/28/2022 Pneumococcal Polysaccharide PPV23 (Pneumovax) 12/09/2019 Season [...] LPN - 04/05/2024 12:14 PM EST Called [facility]. Verbal report given to Yue. * [...] hospitalizedfrom February 28 to March [address] [facility]. Since then her stools have slowly improved and she does not have any diarrhea currently. Hospital records were reviewed on [employer] anywhere. She had a negative test for [...] Reading Date Result Priority Arun Whittington MD [phone] 02/15/2024 Venus Salazar MD [phone] 02/15/2024 Narrative & Impression EXAM EXAM: CT [...] BF Wade will drive her directly to [facility]. Report called to ER --With recent hopsitalization for CDiff last month, mom requests discuss antibiotic options/Cdiff prevention , once diagnosis made, with patient's GI doc--Dr Elvis Burris, [facility], [place] (R30.0) Dysuria Plan: URINALYSIS, POINT OF CARE, [...] by another provider/QHP. Cc: [facility] (This note was completed using the [...] Office Visit General Internal Medicine [facility] [place] [address] [place] [address] Angelita Child MD [address] [facility] [place] [address] Pending Results Name Type Priority Associated Diagnoses [...] AM EST [facility] [place] [facility] Specific [place], Urine 1.020 1.003 - 1.030 04/05/2024 11:37 [...] DOCKED DEVICE UNSOLICITED RESULTS Final Result [facility] [place] [address] * URINE SCREEN, POINT OF CARE (ENTER/EDIT) (04/05/2024) hCG Beta, Urine Negative Negative Procedural Control Valid? Yes Lot Number [id number] Expiration Date 02/16/25 Urine 04/05/2024 Nguyễn Murry MD LAB POINT OF CARE TEST E NTER/EDIT ORDERABLES Final Result documented in this encounter Visit Diagnoses Diagnosis RLQ abdominal pain- Primary Abdominal pain, right lower quadrant Dysuria Nausea Nausea alone documented in this encounter Care Teams Director Sales And Marketing Relationship Specialty Start Date End Date Angelita Child MD [address] [place] [id number] PCP - General Internal Medicine 05/03/19 documented as of this encounter
[2024-04-06] MEDS: FLUTICASONE PROPIONATE NA SPR 16 GM BTL NAE SCH (12:03)
--- NOTE | 2024-04-06 12:12 | Hospitalist Progress Note ---
Date of Service April 06, 2024 Assessment & Plan (1) Right distal ureteral calculus: Plan: Patient presents to the hospital complaints of right flank pain for [address] scan of the abdomen pelvis showed evidence of obstructing 4 mm ureteral stone urology has been consulted keep n.p.o. after midnight Stone did not pass Plan is for OR today for cystoscopy and possible stent placement Pain control with Toradol morphine Empiric IV ceftriaxone (2) UTI (urinary tract infection): Plan: Urinalysis showed evidence of UTI Urine cultures pending Continue empiric IV ceftriaxone Plan continue hopsitalization Admission and Anticipated Discharge Date Admission Date: April 05, 2024 Subjective seen and examined, still having flank pains, stone did not pass. plan is for OR today Review of Systems Review of Systems: All systems reviewed are negative, apart from the ones contained in the history. Physical Exam Physical Exam: The patient is awake, alert and oriented 3, well developed and well nourished, normocephalic and atraumatic, lying in bed and in no acute distress. HEENT--PERRL, EOMI, mucous membranes and oropharynx mildly dry Neck--supple. No JVD. No bruits. Thyroid normal, trachea midline, no adenopathy. Heart--normal S1 and S2. No murmurs, rubs or gallops. Lungs--clear bilaterally, no respiratory distress, no accessory muscle use. Abdomen--normal bowel sounds and soft. Extremities--no cyanosis or clubbing. No edema. Dermatologic--normal skin turgor, normal color, no abnormal lymph nodes, no rash. Neurologic--cranial nerves II through XII grossly intact. Rheumatologic--normal range of motion. Psychiatric--normal affect. Results & Data Results & Data Vital Signs (Past 12 Hours) Vital Signs Temp Pulse Resp BP Pulse Ox O2 Del Method 04/06/24 07:55 98.1 F 91 H 18 150/78 H 95 Room Air PG Care Time/CCT Total # of Minutes Spent Total Time Spent with Patient: Total time spent is greater than 50% in coordination of care (as documented) at patient's floor/unit and/or counseling patient: Coding Level of Care Code 72151 SUB INP/OBS CARE 2/35MIN Diagnoses Right distal ureteral calculus N20.1 UTI (urinary tract infection) N39.0 Time Spent (min) 35
[2024-04-06] MEDS: buPROPion XL 150 MG TABCR PO SCH (12:29)
[2024-04-06] MEDS: FEXOFENADINE HCL 180 MG TAB PO SCH (12:29)
[2024-04-06] MEDS: cefTRIAXone SODIUM 2,000 MG/50 ML BAG IV SCH (14:07)
--- NOTE | 2024-04-06 14:38 | Anesthesiology Consultation ---
Date of Service April 06, 2024 Assessment & Plan (1) Encounter for pre-operative examination: Chart Review Chart Review: Acceptable Risk for Surgery and Patient NOT seen in Pre Admission Testing Consults Requested none History Surgery Operation Date: 04/06/24 11:20 Proposed Procedures p Cystoscopy, Right Ureteral Stent Insertion, Possible Extraction - Johann Cm, Height/Weight Height: 5 ft 3 in Weight: 82.3 kg Allergies Allergy/AdvReac Type Severity Reaction Status Date / Time No Known Allergies Allergy Verified 07/09/21 23:53 Medications Home Medications Medication Instructions Recorded Confirmed Last Taken Lactobacillus acidophilus 10 10,000 mmu cells PO DAILY 08/24/20 04/05/24 07/09/21 billion cell capsule (Probiotic) fexofenadine 180 mg tablet 180 mg PO DAILY 08/24/20 04/05/24 07/09/21 fluticasone propionate 50 1 spray intranasal DAILY 08/24/20 04/05/24 07/09/21 mcg/actuation nasal spray,suspension multivit-iron 18 mg-folic acid 400 1 tab PO QAM 08/24/20 04/05/24 07/09/21 mcg-calcium 500 mg-minerals tablet (Women's One Daily) norgestimate 0.25 mg-ethinyl 1 tab PO DAILY 07/09/21 04/05/24 07/09/21 estradiol 35 mcg tablet (Sylvia) bupropion HCl 300 mg 24 hr tablet, 300 mg PO DAILY 04/05/24 04/05/24 Unknown extended release lisdexamfetamine 70 mg capsule 70 mg PO QAM 04/05/24 04/05/24 Unknown viloxazine 200 mg capsule,extended 200 mg PO DAILY 04/05/24 04/05/24 Unknown release 24 hr (Qelbree) Active Medications Generic Name Dose Route Start Last Admin Trade Name Freq PRN Reason Stop Dose Admin Bupropion HCl 150 mg 04/06/24 09:00 04/06/24 12:29 Bupropion Xl 150 Mg Tabcr PO 05/06/24 08:59 Not Given DAILY MARK Fexofenadine HCl 180 mg 04/06/24 09:00 04/06/24 12:29 Fexofenadine Hcl 180 Mg Tab PO 05/06/24 08:59 Not Given DAILY MARK Fluticasone Propionate 1 sprays 04/06/24 09:00 04/06/24 12:03 Fluticasone Propionate Na Spr 16 Gm Btl JAKE 05/06/24 08:59 Not Given DAILY MARK Sodium Chloride 1,000 mls @ 80 mls/hr 04/05/24 18:34 04/06/24 09:43 Nss IV 04/06/24 18:33 80 mls/hr .[id number] MARK Administration Ceftriaxone Sodium 2,000 mg in 50 mls @ 100 mls/hr 04/06/24 14:00 04/06/24 14:07 Rocephin IV 04/11/24 13:59 100 mls/hr Q24H MARK Administration Miscellaneous 1 each 04/05/24 19:00 04/06/24 07:49 Vyanse 50 Mg- Order Awaiting Action N/A 05/05/24 18:59 Not Given QS MARK Miscellaneous 1 each 04/05/24 19:00 04/06/24 07:49 Oral Contraceptive- Order Awaiting Action N/A 05/05/24 18:59 Not Given QS MARK Protocol Morphine Sulfate 4 mg 04/05/24 21:03 04/06/24 12:03 Morphine Sulfate 4 Mg/Ml 1 Ml Carp\Vial IV 04/19/24 21:02 4 mg Q3H PRN Administration Pain (6,7,8,9,10) Ondansetron HCl 4 mg 04/05/24 18:34 04/06/24 07:49 Ondansetron Inj 2 Mg/Ml 2 Ml Vial IV 05/05/24 18:33 4 mg Q6H PRN Administration Nausea Past Medical History Medical History Asthma Past Surgical History Surgical History No pertinent past surgical history Social History Smoking Status: Never smoker Hx Alcohol Use: No Hx Substance Use: No Physical Exam Vital Signs Last Vital Signs Temp 98.1 F 04/06/24 07:55 Pulse 91 H 04/06/24 07:55 Resp 18 04/06/24 07:55 BP 150/78 H 04/06/24 07:55 Pulse Ox 95 04/06/24 07:55 O2 Del Method Room Air 04/06/24 07:55 Testing Laboratory Results 04/06/24 03:55 04/06/24 03:55 Urine Color Yellow 04/05/24 13:44 Urine Appearance Cloudy (Clear) A 04/05/24 13:44 Urine pH 6.0 (4.5-7.5) 04/05/24 13:44 Ur Specific Commerce 1.023 (1.000-1.030) 04/05/24 13:44 Urine Protein 2+ (Negative) H 04/05/24 13:44 Urine Glucose (UA) Negative (Negative) 04/05/24 13:44 Urine Ketones 1+ (Negative) H 04/05/24 13:44 Urine Nitrite Negative (Negative) 04/05/24 13:44 Ur Leukocyte Esterase 1+ (Negative) H 04/05/24 13:44 Urine WBC (Auto) 21-50 /hpf (0-5) H 04/05/24 13:44 Urine RBC (Auto) >20 /hpf (0-2) H 04/05/24 13:44 U Hyaline Cast (Auto) 3-5 /lpf (0-2) H 04/05/24 13:44 U Epithel Cells (Auto) 6-10 /hpf (0-2) H 04/05/24 13:44 Urine Bacteria (Auto) 3+ (None Seen) H 04/05/24 13:44 04/05/24 13:44 Urine Culture - Preliminary Urine,Clean Catch Pin-point growth present, reincubating.
[2024-04-06] MEDS ORDERED: fentaNYL citrate PF 100 MCG/2 ML VIAL ONE (16:07)
[2024-04-06] MEDS ORDERED: MIDAZOLAM HCL 1 MG/ML 2ML VIAL ONE (16:07)
[2024-04-06] MEDS ORDERED: PROPOFOL IV EMULSION 10 MG/ML 20 ML VIAL IV ONE ×3 (16:08→16:57)
[2024-04-06] MEDS ORDERED: GLYCOPYRROLATE 0.2 MG/ML VIAL ONE ×2 (16:13→16:15)
[2024-04-06] MEDS ORDERED: LIDOCAINE 2% 2 ML VIAL/AMP(20MG/ML) INFIL ONE (16:13)
[2024-04-06] MEDS ORDERED: KETOROLAC 30 MG/ML VIAL ONE (16:36)
[2024-04-06] MEDS ORDERED: ONDANSETRON INJ 2 MG/ML 2 ML VIAL ONE (16:36)
[2024-04-06] MEDS ORDERED: KETAMINE HCL 10MG/ML SYR ONE (16:51)
--- NOTE | 2024-04-06 17:07 | Operative Report ---
PG Post Operative Report Pre & Post Diagnosis Operation Date: 04/06/24 11:20 Pre-Op Diagnosis: Right Ureteral Stone Post-Op Diagnosis: Right Ureteral Stone I identified the patient and participated in the time-out.: Yes Procedure Operation Date: 04/06/24 11:20 Actual Procedures p Cystoscopy with Right Ureteroscopy, Basket Stone Extraction, Retrograde Pyelogram, and Ureteral Stent Insertion (Right) - Johann Cm DO Surgeon Johann Cm, II, DO Recycling Program Manager None Estimated Blood Loss 1 Findings Consistent with Post-Op Diagnosis Stone destroyed to dust and small fragments and larger fragments removed. Specimens Stone Fragments Drains 4.8 Fr x 26 cm Anesthesia Type General Complications none Disposition Disposition: Recovery Room Indications Patient with bothersome stones. Risks and benefits discussed at length. Description of Procedure Patient was consented and brought back to the operating room. Patient was placed under anesthesia in the supine position and moved to the dorsal lithotomy position. Patient was prepped and draped in the regular sterile fashion. A time out was completed. A 30degree Cystoscope was placed into the bladder and the entire bladder was examined. The UO's were identified. The UO was cannulized with a catheter and a retrograde pyelogram was completed. A wire was then placed. The Rigid ureteroscope was taken into the ureter. The stone was identified at the UO. The basket was selected and the stone was grasped and removed and sent for analysis. The entire area was once again examined. No residual other stones or areas of concern were noted in the ureter. Significant inflammation was noted in the distal ureter from the stone. The scope was slowly removed with the wire left in place. Contrast was placed through the scope for a pyelogram to assist in stent placement. The entire ureter was examined as the scope was slowly removed. No obstructions or other areas of concern were noted. With the wire in place, a 4.8 Fr Double J stent was placed. It was confirmed with fluoroscopy. With the stent in place, the bladder was emptied. The scope was removed. The patient was cleaned, aroused from anesthesia, and transferred to the pacu in stable condition having tolerated the procedure well with no complications. I was present and participated in all aspects of the procedure. The patient will be monitored in the PACU until transferred. Will likely continue to observe overnight post op. Plan to remove stent in 1-2 weeks. If interested in treatment of renal stones, can consider maintaining stent and setting up stone treatment in few weeks. I attest to the content of the Intraoperative Record and any orders documented therein. Any exceptions are noted below.
[2024-04-06] MEDS: DIATRIZOATE MEGLUMINE 30% 100ML VIAL INSTIL ONE (17:36)
--- NOTE | 2024-04-06 17:56 | Anesthesiology Progress Note ---
Date of Service April 06, 2024 Anesthesia Post Procedure Vital Signs Vital Signs: Temp Pulse Pulse Pulse Pulse Resp BP 04/06/24 17:46 36.7 C 99 H 16 112/80 04/06/24 17:30 36.8 C 91 H 19 108/82 04/06/24 17:20 104 H 19 127/84 04/06/24 17:10 36.8 C 91 H 15 116/89 04/06/24 15:04 37.5 C 108 H 16 152/91 H 04/06/24 07:55 36.7 C 91 H 18 150/78 H 04/05/24 21:15 36.5 C 117 H 16 137/93 04/05/24 20:31 104 H 19 110/82 04/05/24 20:31 104 H 19 110/82 04/05/24 19:24 97 H 04/05/24 19:14 98 H 21 103/79 04/05/24 19:14 98 H 21 103/79 04/05/24 18:25 93 H 18 126/76 04/05/24 18:07 95 H 20 126/76 Pulse Ox O2 Del Method O2 Flow Rate 04/06/24 17:46 96 Room Air 04/06/24 17:30 96 Room Air 5 04/06/24 17:20 96 Room Air 5 04/06/24 17:10 100 Oxymask 5 04/06/24 15:04 98 Room Air 04/06/24 07:55 95 Room Air 04/05/24 21:15 98 Room Air 04/05/24 20:31 98 Room Air 04/05/24 20:31 98 Room Air 04/05/24 19:24 04/05/24 19:14 100 Room Air 04/05/24 19:14 100 Room Air 04/05/24 18:25 97 Room Air 04/05/24 18:07 97 Room Air Pain Intensity Right Lower Abdomen: Pain Intensity: 8 Transfer of Care Handoff Completed per policy Notes Mental Status: alert / awake / arousable and participated in evaluation Patient Amnestic to Procedure: Yes Nausea / Vomiting: adequately controlled Pain: adequately controlled Airway Patency, RR, SpO2: stable & adequate BP & HR: stable & adequate Hydration State: stable & adequate Anesthetic Complications: no major complications apparent
--- NOTE | 2024-04-07 07:27 | Fluoroscopy Report ---
FL retrograde includes kub CLINICAL HISTORY: RT CYSTOright-sided cystourethrogram COMPARISON STUDY: CT 04/05/2024 FLUOROSCOPY TIME: 24.7 seconds FLUOROSCOPY IMAGES: 3 EXPOSURE DOSE: 5.05 mGy FINDINGS: Proximal portion of the right ureteral stent is in satisfactory positioning projected over the right renal pelvis, distal portion projected over the urinary bladder. Mild right-sided hydroneph rosis redemonstrated. IMPRESSION: Fluoroscopic assistance as above. ACT 112: Negative or not required by law. Electronically signed by: Abiodun Kim M.D. 04/07/2024 7:26 AM
[2024-04-07] MEDS: oxyBUTYnin chloride 5 MG TAB PO PRN (08:51)
--- NOTE | 2024-04-07 09:34 | Urology Progress Note ---
Date of Service April 07, 2024 Assessment & Plan (1) Right distal ureteral calculus: (2) UTI (urinary tract infection): Plan: - Pt POD#1 s/p cystoscopy with Right Ureteroscopy, Basket Stone Extraction, Retrograde Pyelogram, and Ureteral Stent Insertion - Doing well, progressing as expected - Afebrile, normotensive, still mild tachycardia - Urine culture prelim pinpoint growth reincubating - Blood cultures no growth x 24 hours - Some bother from stent - Ordered Pyridium and oxybutynin for stent discomfort - Okay to d/c from perspective when medically stable - Recommend d/c with course of PO antibiotics per culture, Tamsulosin, prn Pyridium, Oxybutynin and prn pain medication for stent management - Expected clinical course reviewed, all questions answered - She has additional renal calculi in her right kidney, discussed continuing with stent and setting up a second surgery and she is agreeable - Will arrange follow-up with our service - will sign off, recall as needed Admission and Anticipated Discharge Date Admission Date: April 06, 2024 Subjective Patient seen and examined at bedside this morning. Her mother is present. Patient reports some pelvic pressure and discomfort. She is voiding spontaneously. Reports dysuria and discomfort with voiding. Denies nausea, vomiting, fever or chills. Review of Systems Constitutional: as per Subjective / HPI Genitourinary: as per Subjective / HPI Physical Exam Constitutional: well developed and well nourished; no acute distress Respiratory: normal respiratory effort; no respiratory distress and no labored breathing Gastrointestinal (Abdomen): Inspection/Auscultation: abdomen normal to inspection Musculoskeletal: Head/Neck/Chest: normocephalic Neurologic: moves all extremities and awake Psychiatric: Orientation: alert and oriented x 3 Results & Data Vital Signs (Past 12 Hours) Vital Signs Temp Pulse Resp BP Pulse Ox O2 Del Method 04/07/24 08:56 36.7 C 105 H 18 114/77 96 Room Air 04/07/24 05:01 36.5 C 100 H 15 117/75 96 Room Air 04/06/24 23:59 37.1 C 76 16 119/76 96 Room Air PG Care Time/CCT Total # of Minutes Spent Total Time Spent with Patient: Total time spent is greater than 50% in coordination of care (as documented) at patient's floor/unit and/or counseling patient: Coding Level of Care Code 50200 SUB INP/OBS CARE Diagnoses Right distal ureteral calculus N20.1 UTI (urinary tract infection) N39.0
--- NOTE | 2024-04-07 10:14 | Discharge Summary ---
Date of Service April 07, 2024 Admission HPI Per Admitting Provider 24-year-old female with no significant past medical history presents to the facility with the following right flank pain about 5 days duration. Emergency department vital signs within normal limits was 14,000 however urinalysis showed evidence of some blood in the urine with a WBC and RBCs and also 3+ bacteria. A CT scan of the abdomen pelvis was done which showed evidence of a right-sided hydro ureteral nephrosis with an obstructing 4 mm stone. Has been consulted and plan will be to admit to the hospital service for now, but there may be need to take her to the OR if things do not improve. Admission Exam (Per Admitting) Constitutional The patient is awake, alert and oriented 3, well developed and well nourished, normocephalic and atraumatic, lying in bed and in no acute distress. HEENT--PERRL, EOMI, mucous membranes and oropharynx mildly dry Neck--supple. No JVD. No bruits. Thyroid normal, trachea midline, no adenopathy. Heart--normal S1 and S2. No murmurs, rubs or gallops. Lungs--clear bilaterally, no respiratory distress, no accessory muscle use. Abdomen--normal bowel sounds and soft. Extremities--no cyanosis or clubbing. No edema. Dermatologic--normal skin turgor, normal color, no abnormal lymph nodes, no rash. Neurologic--cranial nerves II through XII grossly intact. Rheumatologic--normal range of motion. Psychiatric--normal affect. Discharge Data Consultations 04/05/24 15:34 Consult Urology Routine 04/05/24 16:23 ED Decision to Admit Stat Procedures Performed Operation Date: 04/06/24 11:20 Actual Procedures p Cystoscopy,Ureteronephroscopy, Basket Stone Extraction, Retrograde Right Ureteral Stent Insertion (Right) - Johann Cm, Hospital Course (1) Right distal ureteral calculus: Patient presents to the hospital complaints of right flank pain for [address] scan of the abdomen pelvis showed evidence of obstructing 4 mm ureteral stone urology has been consulted keep n.p.o. after midnight Now s/p cystoscopy with Right Ureteroscopy, Basket Stone Extraction, Retrograde Pyelogram, and Ureteral Stent Insertion D/C home, follow up with Urology for stent removal (2) UTI (urinary tract infection): Urinalysis showed evidence of UTI Urine cultures pending d/c on PO cephalexin 500mg BID for 5 days Plan d/c home Coding Level of Care Code 85239 INP/OBS DISCH >30 MIN Diagnoses Right distal ureteral calculus N20.1 UTI (urinary tract infection) N39.0 Time Spent (min) 35
[2024-04-07] MEDS: PHENAZOPYRIDINE HCL 200 MG TAB PO PRN (10:24)
--- OUTSIDE RECORDS SUMMARY | 2024-04-08 15:13 | External Medical Summary ---
Author Name Unknown Address Unknown Organization [id number]:[facility] [place] - [address] [place] [id number] Laboratory Report Ordering Provider Test Date Status NIKKO NINO 04/05/2024 11:39:37 Final Observation Date Value Abnormality Reference (Units) Status Bacteria identified in Specimen by Culture 04/05/2024 11:39:37 No significant growth Final Test: Culture, Urine, Quanti tative
Specimen Source: Urine, Clean Catch
Specimen Type: Urine
Specimen Date: 04/05/2024 1139
Result Date: 04/06/2024 1126
Result Status: Final result
Resulting Lab: [facility]
[address]
[facility] [id number]

CULTURE

No significant growth

null Performing Location [facility] [place] - [address] [facility] [id number]
== END 2024-04-07 13:47 | disposition home or self-care (01) | DRG 661 ==
LOC: ED 12:22 → EDINP 12:22 → 3W 18:34